=== PATIENT | female | born 1990 | race Caucasian/White ===

== ENCOUNTER 2024-10-04 05:40 | Emergency (ER) | payer MEDICAID ==
[~2024-10-04] VITALS: Ht 172.7 cm; Wt 90.7 kg
[~2024-10-04 05:40] MED LIST: ABILIFY MYCITE20 M2 PO; ALBU90OI INH; ATOR10 PO; BENZ1 PO; Buspirone HCl15 MG PO; CLOZAPINE200 M1 PO; Depakote125 MG PO; EUTHYROX125 MCG PO; FLUTICASONE P15.8 M1; METFORMIN HCL500 MG PO; MIRALAX17 GM PO; PANT20 PO; Tenex1 MG PO; [UNRECOGNIZED DRUG - CODE] PO
[2024-10-04] MEDS ORDERED: OLANZapine ODT 5 MG Tab MM ONE (08:10)
[2024-10-04] MEDS ORDERED: LORazepam 1 MG Tab PO ONE (08:10)
[2024-10-04 09:40] LABS: BASOPHILS ABSOLUTE AUTO 0.07 K/mm3 (0.00-0.23); BASOPHILS PERCENT AUTO 1 % (0-2); EOSINOPHILS ABSOLUTE AUTO 0.04 K/mm3 (0.00-0.68); EOSINOPHILS PERCENT AUTO 1 % (0-6); Hematocrit 42.4 % (33.0-51.0); Hemoglobin 14.1 g/dL (11.5-16.0); IMMATURE GRAN ABSOLUTE AUTO 0.01 K/mm3 (0.00-0.10); IMMATURE GRAN PERCENT AUTO 0 % (0-1); LYMPHOCYTES ABSOLUTE AUTO 1.63 K/mm3 (0.84-5.20); LYMPHOCYTES PERCENT AUTO 30 % (21-46); MONOCYTES ABSOLUTE AUTO 0.33 K/mm3 (0.16-1.47); MONOCYTES PERCENT AUTO 6 % (4-13); Mean Corpuscular HGB 31.1 pg (26.0-34.0); Mean Corpuscular HGB Conc 33.3 g/dL (31.5-36.5); Mean Corpuscular Volume 94 fL (80-100); Mean Platelet Volume 9.6 fL (9.1-12.4); NEUTROPHILS ABSOLUTE AUTO 3.35 K/mm3 (1.96-9.15); NEUTROPHILS PERCENT AUTO 62 % (41-73); Platelet Count 475 K/mm3 (150-400); RDW Coefficient Variation 13.9 % (11.7-14.2); RDW Standard Deviation 48.4 fL (35.1-46.3); Red Blood Cell Count 4.53 M/mm3 (3.80-5.20); White Blood Cell Count 5.43 K/mm3 (4.00-11.30)
[2024-10-04 10:03] LABS: Ethanol (Alcohol), Blood, Med <3 mg/dL; Salicylate <1.7 mg/dL (2.8-20.0)
[2024-10-04] MEDS ORDERED: CLOZAPINE200 MG PO (10:06)
[2024-10-04 10:07] LABS: Alanine Aminotransfer (ALT/SGP 51 U/L (12-78); Albumin, Blood 3.8 g/dL (3.4-5.0); Albumin/Globulin Ratio 1.1 (0.8-1.8); Alk Phos 112 U/L (50-136); Anion Gap 11 mmol/L (3-11); Aspartate Aminotrans (AST/SGOT 25 U/L (12-37); Bilirubin, Total 0.9 mg/dL (0.1-1.0); Blood Urea Nitrogen 11 mg/dL (8-24); Bun/Creatinine Ratio 16.7 (12.0-20.0); CO2, Blood 22 mmol/L (21-32); Calcium, Blood 9.7 mg/dL (8.5-10.1); Chloride, Blood 112 mmol/L (98-108); Creatinine, Blood 0.66 mg/dL (0.40-1.00); Globulin, Blood 3.5 g/dL (2.2-4.0); Glomerular Filtration Rate 118 (60-); Glucose, Blood 102 mg/dL (70-99); Sodium, Blood 141 mmol/L (136-145); Total Protein, Blood 7.3 g/dL (6.4-8.2)
[2024-10-04 10:08] LABS: Acetaminophen, Random < 10.0 ug/mL (10.0-30.0)
== END 2024-10-04 10:19 | disposition home or self-care (01) ==
LOC: ER 05:40
PROVIDERS: Student in an Organized Health Care Education/Training Program
DX: F25.0 Schizoaffective disorder, bipolar type (principal); E03.9 Hypothyroidism, unspecified; K21.9 Gastro-esophageal reflux disease without esophagitis; E11.9 Type 2 diabetes mellitus without complications; E78.5 Hyperlipidemia, unspecified; F17.210 Nicotine dependence, cigarettes, uncomplicated; Z76.0 Encounter for issue of repeat prescription; Z79.84 Long term (current) use of oral hypoglycemic drugs; Z79.51 Long term (current) use of inhaled steroids; Z79.899 Other long term (current) drug therapy; Z88.8 Allergy status to other drugs, medicaments and biological substances
CPT/HCPCS: 80053; 80320; 85025; 93005; 93010; 99284-25; A9270; G0480

== ENCOUNTER 2024-10-06 05:51 | Emergency (ER) | payer MEDICAID ==
[~2024-10-06] VITALS: Ht 175.3 cm; Wt 90.7 kg
[~2024-10-06 05:51] MED LIST changes: +CLOZAPINE200 MG PO
[2024-10-06] MEDS ORDERED: LORazepam 1 MG Tab PO ONE (08:40)
[2024-10-06] MEDS ORDERED: CLOZAPINE200 M1 PO (08:42)
== END 2024-10-06 09:17 | disposition home or self-care (01) ==
LOC: ER 05:51
DX: F41.9 Anxiety disorder, unspecified (principal); Z76.0 Encounter for issue of repeat prescription; E03.9 Hypothyroidism, unspecified; K21.9 Gastro-esophageal reflux disease without esophagitis; E11.9 Type 2 diabetes mellitus without complications; F17.210 Nicotine dependence, cigarettes, uncomplicated; Z79.84 Long term (current) use of oral hypoglycemic drugs; Z79.899 Other long term (current) drug therapy; Z88.8 Allergy status to other drugs, medicaments and biological substances
CPT/HCPCS: 99282; A9270

== ENCOUNTER 2024-10-28 23:10 | Observation (INO) | payer OTHER ==
[~2024-10-28] VITALS: Ht 172.7 cm; Wt 90.7 kg
[2024-10-29 06:03] LABS: BASOPHILS ABSOLUTE AUTO 0.04 K/mm3 (0.00-0.23); BASOPHILS PERCENT AUTO 1 % (0-2); EOSINOPHILS ABSOLUTE AUTO 0.12 K/mm3 (0.00-0.68); EOSINOPHILS PERCENT AUTO 3 % (0-6); Hematocrit 39.7 % (33.0-51.0); Hemoglobin 13.3 g/dL (11.5-16.0); IMMATURE GRAN ABSOLUTE AUTO 0.01 K/mm3 (0.00-0.10); IMMATURE GRAN PERCENT AUTO 0 % (0-1); LYMPHOCYTES PERCENT AUTO 46 % (21-46); MONOCYTES ABSOLUTE AUTO 0.46 K/mm3 (0.16-1.47); MONOCYTES PERCENT AUTO 10 % (4-13); Mean Corpuscular HGB 32.4 pg (26.0-34.0); Mean Corpuscular HGB Conc 33.5 g/dL (31.5-36.5); Mean Corpuscular Volume 97 fL (80-100); Mean Platelet Volume 9.6 fL (9.1-12.4); NEUTROPHILS ABSOLUTE AUTO 1.82 K/mm3 (1.96-9.15); NEUTROPHILS PERCENT AUTO 40 % (41-73); Platelet Count 369 K/mm3 (150-400); RDW Coefficient Variation 13.9 % (11.7-14.2); RDW Standard Deviation 49.4 fL (35.1-46.3); White Blood Cell Count 4.55 K/mm3 (4.00-11.30)
[2024-10-29 06:30] LABS: Alanine Aminotransfer (ALT/SGP 120 U/L (12-78); Albumin, Blood 3.3 g/dL (3.4-5.0); Albumin/Globulin Ratio 1.2 (0.8-1.8); Alk Phos 65 U/L (50-136); Anion Gap 13 mmol/L (3-11); Aspartate Aminotrans (AST/SGOT 51 U/L (12-37); Bilirubin, Total 1.3 mg/dL (0.1-1.0); Blood Urea Nitrogen 13 mg/dL (8-24); Bun/Creatinine Ratio 21.2 (12.0-20.0); CO2, Blood 22 mmol/L (21-32); Calcium, Blood 9.1 mg/dL (8.5-10.1); Chloride, Blood 111 mmol/L (98-108); Creatinine, Blood 0.61 mg/dL (0.40-1.00); Ethanol (Alcohol), Blood, Med <3 mg/dL; Globulin, Blood 2.8 g/dL (2.2-4.0); Glomerular Filtration Rate 120 (60-); Glucose, Blood 91 mg/dL (70-99); Potassium, Blood 3.6 mmol/L (3.5-5.5); Sodium, Blood 142 mmol/L (136-145); Total Protein, Blood 6.1 g/dL (6.4-8.2)
[2024-10-29 07:34] LABS: Source, Urine Clean Catch
[2024-10-29 08:39] LABS: Appearance, Urine Hazy (Clear); Bilirubin, Urine Neg (Neg); Blood, Urine 4+ (Neg); Color, Urine Amber (P-Yellow); Glucose Qualitative, Urine Neg (Neg); Ketones, Urine 1+ (Neg); Leukocyte Esterase, Urine Neg (Neg); Nitrite, Urine Neg (Neg); Protein, Urine 2+ (Neg); Urobilinogen, Urine 1+ (Normal)
[2024-10-29 09:07] LABS: Calcium Oxalate Crystals Few /hpf; Mucus Heavy (0-Heavy); Red Blood Cells, Urine 50-100 /hpf (0-2); Squamous Epithelial Cells Many /hpf (Few)
[2024-10-29 09:08] LABS: Bacteria Many /hpf; White Blood Cells, Urine 0-2 /hpf (0-5)
[2024-10-29 13:38] LABS: U Amphetamine Screen Not Detected; U Barbituate Screen Not Detected; U Benzodiazapine Screen Not Detected
[2024-10-29 13:39] LABS: U Buprenorphine Screen Not Detected; U Cannabinoids Screen Not Detected; U Cocaine Screen Not Detected; U Methadone Screen Not Detected; U Methamphetamine Screen Not Detected; U Opiates Screen Not Detected; U Oxycodone Screen Not Detected; U Phencyclidine Screen Not Detected
== END 2024-10-29 13:55 | disposition other institution (70) ==
LOC: ER 23:10 → EOR 23:11
PROVIDERS: ADMIT Emergency Medicine
DX: F25.0 Schizoaffective disorder, bipolar type (principal); R45.851 Suicidal ideations; E03.9 Hypothyroidism, unspecified; K21.9 Gastro-esophageal reflux disease without esophagitis; E11.9 Type 2 diabetes mellitus without complications; E78.5 Hyperlipidemia, unspecified; F17.210 Nicotine dependence, cigarettes, uncomplicated; Z79.84 Long term (current) use of oral hypoglycemic drugs; Z79.899 Other long term (current) drug therapy; Z88.8 Allergy status to other drugs, medicaments and biological substances
CPT/HCPCS: 80053; 80320; 81001; 84443; 84703; 85025; 93005; 93010; 99285; G0378

== ENCOUNTER 2024-10-29 13:18 | Inpatient (IN) | payer MEDICARE, OTHER ==
[2024-10-29] MEDS ORDERED: FLU VACC TS2024-25(6MOS UP)/PF 45 MCG/0.5 ML SYRINGE IM SCH (13:50)
[2024-10-29] MEDS ORDERED: HydrOXYzine Pamoate 50 MG Cap PO PRN (13:50)
[2024-10-29] MEDS ORDERED: OLANZapine ODT 10 MG Tab MM PRN (13:55)
[2024-10-29] MEDS ORDERED: Ibuprofen 600 MG Tab PO PRN (13:55)
[2024-10-29] MEDS ORDERED: Aluminum Hydroxide 320MG/5ML 473 ML PO PRN (13:55)
[2024-10-29] MEDS ORDERED: Melatonin 3 MG Tab PO PRN (13:55)
[2024-10-29] MEDS ORDERED: Calcium Carbonate 500 MG Tab Chew PO PRN (13:55)
[2024-10-29] MEDS ORDERED: Polyethylene Glycol 3350 17 gm PO PRN (13:55)
[2024-10-29] MEDS ORDERED: Ondansetron 4 MG SoluTab MM PRN (13:55)
[2024-10-29] MEDS ORDERED: Acetaminophen 325 MG TABLET PO PRN (14:00)
[2024-10-29] MEDS ORDERED: TraZODone HCl 50 MG Tab PO PRN (14:00)
[2024-10-29 14:07] VITALS: BP 123/82
--- NOTE | 2024-10-29 16:20 | NUR ---
ADMISSION NOTE PT ARRIVED FROM [facility] ED, A&O X3, MALODOROUS OF YEAST AND UNKEMPT HAIR. BELONGINGS WERE GATHERED, LOGGED, AND SECURED BY MHA. PT VERY ITCHY IN GROIN FOLDS ON ARRIVAL AND ALLOWED TO SHOWER PRIOR TO INTAKE QUESTIONS AND ORIENTATION TO UNIT. AFTER SHOWER PT WAS GIVEN HER NEW PATIENT PACKET AND CONSENT FORMS SIGNED. PT STATES UNDERSTANDING OF EXPECTATIONS WHILE IN U. PT ORIENTED TO UNIT AND ROOM, INTRODUCED TO HER ROOMMATE. SHE IMMEDIATELY LAY DOWN IN HER BED AND COVERED UP WITH BLANKETS. PT WAS COOPERATIVE WITH INTAKE PROCESS AND QUESTIONS. NOTIFIED OF YEAST LIKE RASH TO GROIN.
[2024-10-29] MEDS ORDERED: CLOZAPINE 25 MG PO SCH ×2 (21:00)
[2024-10-29] MEDS ORDERED: Miconazole Nitrate 2% 85 GM PWD TOP SCH (21:00)
[2024-10-29 22:43] VITALS: BP 99/59
--- NOTE | 2024-10-30 04:21 | NUR ---
PATIENT WAS IN BED RESTING BUT AWAKE AT THE BEGINNING OF THE SHIFT. SHE WAS ABLE TO ANSWER QUESTIONS APPROPRIATELY. SHE WAS PLEASANT AND COOPERATIVE WITH CARES, INCLUDING EVENING MEDICATIONS. SHE JOINED THE UNIT IN THE DINING AREA FOR SNACK AND FOLLOW UP AT 1999. SHE WENT TO BED SHORTLY AFTER AND WAS NOTED TO BE RESTING QUIETLY WITH EYES CLOSED AND RESPIRATIONS CONFIRMED FOR THE REMAINDER OF THE SHIFT. SHE HAD NO S/SX SUICIDAL IDEATION OR SELF HARM THIS SHIFT. CONTINUING TO MONITOR FOR SAFETY WITH Q15 MINUTE CHECKS.
[2024-10-30] MEDS ORDERED: Multivitamins 1 Tab PO SCH (09:00)
[2024-10-30] MEDS ORDERED: CLOZAPINE 25 MG PO SCH ×2 (09:00→21:00)
[2024-10-30 11:18] VITALS: BP 118/82
[2024-10-30] MEDS ORDERED: Nicotine Polacrilex 2 MG Gum PO PRN (12:10)
[2024-10-30 13:34] LABS: Chlamydia Trachomatis Urine NOT DETECTED (NOT DETECT); Neisseria Gonorrhoea Urine NOT DETECTED (NOT DETECT)
--- NOTE | 2024-10-30 17:23 | NUR ---
SHIFT SUMMARY PT A/O X3; DENIES SI, HI, OR ANY HALLUCINATIONS. PT SAYS THAT SHE FEELS VERY TIRED AND DID NOT SLEEP WELL LAST NIGHT. PT HAS BEEN IN BED FOR THE MAJORITY OF THE SHIFT BUT HAS PARTICIPATED IN MEALS AND GROUPS. PT RASH DUE TO YEAST VISUALIZED BETWEEN AND UNDER PATIENT'S BREAST. AREA CLEANED AND ANTI FUNGAL POWDER APPLIED. PT MET WITH FARMER AND GRAZIER TODAY AND BANK CARD OBTAINED. BANK CARD PLACED IN SIGNED ENVELOPE AND PUT IN SAFE. SHE HAS DENIED ANY NEEDS THIS SHIFT AND IS MONITORED VIA Q15 ROUNDING FOR SAFETY.
[2024-10-30 23:39] VITALS: BP 116/89
--- NOTE | 2024-10-31 05:37 | NUR ---
SHIFT SUMMARY Pt is A&O, calm, cooperative, eye contact is appropriate. Pt stated her mood is "sad, depressed." Affect is congruent with reported mood. Pt denies SI, HI, and hallucinations. She rated her depression as 7/10w and anxiety as 8/10w. Pt endorsed bilateral foot pain 7/10w and received PRN APAP; pt was asleep at reassessment. Pt remained in her room throughout the evening, but she did come out at snack time. Pt asked charge nurseif she could have a room to herself, but it was explained that there was no appropriate reason to change. Staff continues to monitor q15m for safety and wellness.
[2024-10-31] MEDS ORDERED: BusPIRone HCl 5 MG Tab PO SCH (14:00)
--- NOTE | 2024-10-31 16:34 | NUR ---
SHIFT SUMMARY PT A/O X4 AND DENIES SI, HI, OR ANY HALLUCINATIONS. SHE HAS ATTENDED ALL MEALS AND MOST GROUPS THIS SHIFT. SHE HAS BEEN IN BED FOR THE MAJORITY OF THE SHIFT AND SAID THAT SHE HAS NOT BEEN FEELING WELL. PT C/O THICK, WHITE, VAGINAL DISCHARGE AND ITCHING. PT HAS YEAST RASH TO GROIN AND UNDER BREASTS AND FUNGAL POWDER APPLIED PER EMR. PHYSICIAN NOTIFIED OF DISCHARGE AND ORDERS OBTAINED. PT SHOWERED THIS SHIFT AND CONTINUES TO SLEEP. SHE IS MONITORED PER Q15 ROUNDING FOR SAFETY.
[2024-10-31 23:05] VITALS: BP 109/80
--- NOTE | 2024-11-01 05:43 | NUR ---
SHIFT SUMMARY Pt is A&O, calm, cooperative, eye contact is appropriate. Pt stated that her mood is "sad," affect is depressed and congruent to stated mood. Pt denies SI, HI, and hallucinations. She rated her anxiety and depression both as 8/10w. She c/o body aches 7/10w and received PRN APAP and ibuprofen; she was asleep at reassessment. Pt showered today and used the antifungal powder on the affected areas. She received PRN trazodone during HS med pass. Staff continues to monitor q15m for safety and wellness.
[2024-11-01] MEDS ORDERED: Fluconazole 100 MG Tab PO SCH (09:00)
[2024-11-01] MEDS ORDERED: CLOZAPINE 25 MG PO SCH ×2 (09:00→21:00)
--- NOTE | 2024-11-01 17:38 | NUR ---
PT DENIES TO BE SI,HI AND AVH. HAS BEEN COOPERATIVE AND COMPLIANT WITH MEDS. WENT TO GROUP FOR MINIMAL TIMES. HAS BEEN IN BED TODAY WITH COMPLANT OF ACHY FEELING ALL OVER. HAS EATEN MEALS AND SNACKS TODAY. SHOWERED. DRY SKIN AREA GETTING BETTER. STILL STATES SHE IS ANXIOUS ABOUT NOT KNOWING ABOUT WHAT IS HAPPENING WITH HER DISCHARGE. SPOKE WITH CARMEN HER ATTORNY ON THE PHONE. WILL CONTINUE TO MONITOR.
[2024-11-02 00:19] VITALS: BP 111/78
--- NOTE | 2024-11-02 05:31 | NUR ---
SHIFT SUMMARY Pt is A&O, calm, cooperative, eye contact is appropriate. Pt describes her mood as "depressed," affect is congruent with reported mood. Pt denies SI, HI, hallucinations, and pain. She rates her depression and anxiety both as 7/10w. Pt did shower today. She spent the evening in her room, but did come out for her evening snack. Pt received PRN trazodone and melatonin during this shift. Staff continues to monitor q15m for safety and wellness.
[2024-11-02 07:49] VITALS: BP 113/80
[2024-11-02 11:08] LABS: Free Thyroxine 0.7 ng/dL (0.70-1.60); Triiodothyronine, Free 2.38 pg/mL (2.18-3.98)
--- NOTE | 2024-11-02 15:21 | NUR ---
PATIENT UP FOR SNACK, THEN BACK TO BED. VERBALIZED FEELING ANXIOUS AND ASKING FOR ZYPREXIA. SPEECH QUICK WITH SHORT ANSWERS. DENIES SI, HI, AVH. PATIENT APPEARS FEARFUL, WHEN ASKED DENIES BEING AFRAID. PATIENT AGREEING TO WAIT FOR APROX AN HOUR TO SEE HOW THE BUSPAR WORKS, BEFORE TAKING ZYPREXIA.
--- NOTE | 2024-11-02 17:43 | NUR ---
SHIFT SUMMARY PATIENT ATTENDING GROUP AND MEALS, BUT BACK IN ROOM DURING DOWN TIME. DESPITE BEING TIRED AND APPEARING RELAXED PATIENT VERBALIZED FEELING ANXIOUS, SCHEDULED BUSPAR GIVEN. NO SI, HI, OR AVH. PATIENT ABLE TO SHOWER TODAY WITH ENCOURAGEMENT
[2024-11-02 22:16] VITALS: BP 119/81
--- NOTE | 2024-11-03 04:21 | NUR ---
SHIFT SUMMARY: PATIENT WAS IN BED AT THE BEGINNING OF THE SHIFT. SHE CAME OUT TO STATE THAT SHE WAS HAVING PAIN 7/10 "IN MY JOINTS". SHE WAS GIVEN APAP AT 193 WITH GOOD EFFECT. SHE DECLINED OFFER OF EVENING SNACK AT 1999. SHE WAS COOPERATIVE WITH CARES, INCLUDING VITALS AND EVENING MEDICATIONS. PATIENT WAS NOTED TO BE RESTING QUIETLY IN BED WITH EYES CLOSED AND RESPIRATIONS CONFIRMED FOR MOST OF THE SHIFT. SHE HAD NO S/SX SUICIDAL IDEATION OR SELF HARM. CONTINUING TO MONITOR FOR SAFETY WITH Q15 MINUTE CHECKS.
[2024-11-03 08:02] VITALS: BP 121/101
[2024-11-03] MEDS ORDERED: CLOZAPINE 25 MG PO SCH (09:00)
[2024-11-03] MEDS ORDERED: HydrOXYzine Pamoate 50 MG Cap PO PRN (17:00)
--- NOTE | 2024-11-03 17:19 | NUR ---
PATIENT UP TO NURSES DESK REQUESTING ZYPREXA FOR HER ANXIETY. WHEN ASKED ABOUT HER SLEEPING BETWEEN ACTIVITIES, PATIENT VERBALIZED THAT SHE WAS JUST "RESTING" PATIENT RECEIVED BUSPAR AT 1400, PATIENT CONTINUES TO EXPRESS FEELING ANXIOUS. DOCTOR YOSVANY NOTIFIED ORDER OBTAINED FOR HYDROXYZINE. PATIENT MEDICATED AND ENCOURAGED TO PARTICIPATE NOT ONLY IN GROUP BUT IN MILIEU.
--- NOTE | 2024-11-03 17:41 | NUR ---
SHIFT SUMMERY PATIENT ATTENDING GROUP AND MEALS NEEDING ENCOURAGEMENT FROM STAFF, RETURNING TO ROOM AND LAYING DOWN BETWEEN ACTIVITIES. TREMOR SEEN TO ARMS AND HANDS THAT DOES NOT INTERFERE WITH ADLS OR EATING. PATIENT VERBALIZED THAT SHE HAS OCCASIONAL SI THOUGHTS WITH NO PLAN. DENIES HI OR AVH. PATIENT CONTINUES TO REQUIRE ENCOURAGEMENT TO SHOWER AND OTHER ADL'S.
[2024-11-03] MEDS ORDERED: CloZAPine 100 MG Tab PO SCH (21:00)
[2024-11-03] MEDS ORDERED: Paliperidone 1.5 MG TAB.ER.24 PO SCH (21:00)
[2024-11-04 00:09] VITALS: BP 122/96
--- NOTE | 2024-11-04 05:08 | NUR ---
SHIFT SUMMARY PT IN BED AT START OF SHIFT, AWAKE. DENIES ANY SI, HI OR HALLUCIANTIONS. PT CALM, COOPERATIVE, GOT UP FOR EVENING SNACK. SHE WAS COMPLIANT WITH HER MEDICATIONS. SHE REQUESTED AND RECEIVED TRAZODONE AND MELATONIN. SHE REPORTED GENERALIZED ACHES AND RECEIVED PRN TYLENOL. PT WENT BACK TO BED AFTER EVENING SNACK AND HAS APPEARED TO SLEEP WELL. Q15 MINUTE CHECKS TO CONTINUE PER UNIT PROTOCOL.
[2024-11-04] MEDS ORDERED: Paliperidone Palmitate 234 MG/1.5 ML SYR IM ONE (09:40)
--- NOTE | 2024-11-04 17:01 | NUR ---
SHIFT SUMMARY: PT ALERT AND ORIENTED. DENIED SI, HI AND AVH. PT STATED THAT SHE IS FEELING "OK" TODAY. PT PRESENT FOR MEALS AND ATTENDED AFTERNOON GROUPS. DID NOT ENGAGE IN UNIT MILIEU, SPENT THE MAJORITY OF THE DAY IN HER ROOM, SLEEPING. C/O HEADACHE AND WAS MEDICATED WITH PRN PER ORDERS.
[2024-11-04 18:07] VITALS: BP 93/51
[2024-11-04 22:47] VITALS: BP 118/78
--- NOTE | 2024-11-05 03:41 | NUR ---
PATIENT SUMMARY: ASSUMED CARE FROM PRIOR SHIFT. PATIENT ALREADY IN BED AT BEGINNING OF SHIFT. SHE DID GET P FOR SNACK TIME HOWEVER, DIDN'T PARTICIPATE IN PM GROUP. SHE IS COMPLIANT WITH NIGHT TIME MEDS AND ASSESSMENT. ONLY MAKEING "YES" OR "NO" ANSWERS. SHE CURRENTLY DENIES SI, VH, AH OR TH. SHE SLEEPS THROUGH THE NIGHT. NO NOTED BEHAVIORS OR ISSUES.
--- NOTE | 2024-11-05 06:22 | NUR ---
PATIENT CURRENTLY SLEEPING. NO NOTED ISSUES OR BEHAVIORS.
[2024-11-05] MEDS ORDERED: CloZAPine 100 MG Tab PO SCH (09:00)
--- NOTE | 2024-11-05 09:02 | NUR ---
SHIFT NOTE: PT DENIED SI, HI AND AVH. SHE REPORTED ANXIETY OF 6/10w AND JOINT PAIN 5/10w. PT GOT UP FOR BREAKFAST AND WENT BACK TO BED. WHEN ASKED ABOUT HER FEELINGS/MOOD FOR THE DAY SHE REPLIED, "I DON'T KNOW." PT WAS ENCOURAGED TO ATTEND GROUPS TODAY.
[2024-11-05 14:46] LABS: BASOPHILS ABSOLUTE AUTO 0.04 K/mm3 (0.00-0.23); BASOPHILS PERCENT AUTO 1 % (0-2); EOSINOPHILS ABSOLUTE AUTO 0.13 K/mm3 (0.00-0.68); EOSINOPHILS PERCENT AUTO 2 % (0-6); Hematocrit 42.3 % (33.0-51.0); Hemoglobin 14.4 g/dL (11.5-16.0); IMMATURE GRAN ABSOLUTE AUTO 0.02 K/mm3 (0.00-0.10); IMMATURE GRAN PERCENT AUTO 0 % (0-1); LYMPHOCYTES ABSOLUTE AUTO 2.41 K/mm3 (0.84-5.20); LYMPHOCYTES PERCENT AUTO 43 % (21-46); MONOCYTES ABSOLUTE AUTO 0.46 K/mm3 (0.16-1.47); MONOCYTES PERCENT AUTO 8 % (4-13); Mean Corpuscular HGB 32.5 pg (26.0-34.0); Mean Corpuscular Volume 96 fL (80-100); Mean Platelet Volume 10.7 fL (9.1-12.4); NEUTROPHILS ABSOLUTE AUTO 2.61 K/mm3 (1.96-9.15); NEUTROPHILS PERCENT AUTO 46 % (41-73); Platelet Count 412 K/mm3 (150-400); RDW Standard Deviation 46.2 fL (35.1-46.3); Red Blood Cell Count 4.43 M/mm3 (3.80-5.20); White Blood Cell Count 5.67 K/mm3 (4.00-11.30)
--- NOTE | 2024-11-05 15:21 | NUR ---
PT IS PRESENTLY IN THE GROUP ROOM WATCHING A MOVIE WITH PEERS. A MHA REMOVED THE MATTED HAIR FROM THE BACK OF JERSON'S HEAD, SHE THEN TOOK A SHOWER AND WASHED HER HAIR.
[2024-11-05 20:10] VITALS: BP 135/86
--- NOTE | 2024-11-06 05:03 | NUR ---
SHIFT NOTE: PT OOB FOR FIRST PART OF SHIFT, NOT WANTING TO PARTICIPATE IN GROUPS OR ACTIVITIES BUT PARTICIPATED IN SNACK. PT PLEASANT THIS SHIFT AND INTERACTING WITH STAFF AND OTHER PEERS. DENIES SI/HI/AVH. PRN TRAZADONE GIVEN AFTER DINNER PER PT REQUEST. SHE SLEPT THROUGH THE NIGHT WITH NAD OR DISTURBANCES. SHE WAS COMPLIANT WITH ALL MEDICATIONS.
[2024-11-06 07:51] VITALS: BP 122/67
[2024-11-06] MEDS ORDERED: BusPIRone HCl 10 MG Tab PO SCH (14:00)
--- NOTE | 2024-11-06 17:03 | NUR ---
SHIFT ASSESSMENT PT AA&O TO PERSON, PLACE, AND SITUATION. PT HAS BEEN NAPPING ON AND OFF TODAY. SHE HAS BEEN UP MORE THAN USUAL WITHOUT CUING. PT HAS BEEN ASWERING QUESTIONS WITH FULL SENTENCES. SHE DENIES SI, AVH. SHE DOES REPORT THAT SHE HAS A "LOT TO DEAL WITH" AND IS NOT SURE "WHAT I AM GOING TO DO" SHE REPORTS THAT SHE WOULD LIKE TO GET BACK TO [place] TO BE WITH HER MOTHER AND GRANDMOTHER. PT HAS BEEN COMPLIANT WITH MEDICATIONS. SHE DENIES ANY ADVERSE SIDE EFFECTS. PT MEDICATED X1 WITH HYDROXIZINE WITH GOOD EFFECTS. SHE DENIES ANY CURRENT NEEDS. WILL CONTINUE POC
[2024-11-06 21:03] VITALS: BP 111/74
--- NOTE | 2024-11-07 04:08 | NUR ---
Patient is alert and oriented times four. Flat affect and very minimally conversant. She denies SI,HI or AVH during evening assessment. Bed most of the evening except during snack time which she did eat 100%. Will continue close monitoring every 15 minutes for comfort and safety
[2024-11-07 08:32] VITALS: BP 133/80
--- NOTE | 2024-11-07 17:20 | NUR ---
SHIFT NOTE: PT UP FOR MEALS AND SNACKS. STAYED IN BED MOST OF THE DAY UNTIL THE EVENING TIME WHEN SHE GOT OUT OF BED TO WATCH TV WITH PEERS IN GROUP ROOM. PT RECIEVED ONE PRN DOSE OF VISTARIL FOR C/O ANXIETY THIS AFTERNOON. PT DENIES ANY SI/HI/AVH. SHE WAS COMPLIANT WITH ALL MEDICATIONS.
[2024-11-07 20:53] VITALS: BP 106/79
--- NOTE | 2024-11-08 04:18 | NUR ---
SHIFT SUMMARY: PATIENT WAS IN BED AT THE BEGINNING OF THE SHIFT. SHE WAS AWAKENED TO ASK IF SHE WOULD LIKE TO PARTICIPATE IN SNACK AND FOLLOW UP, WHICH SHE DID. SHE THEN WENT RIGHT BACK TO BED. SHE WAS AWAKENED AGAIN FOR MEDICATION ADMINISTRATION. SHE WAS COMPLIANT, BUT WENT RIGHT BACK TO BED WHERE SHE WAS NOTED TO BE RESTING QUIETLY WITH EYES CLOSED AND RESPIRATIONS CONFIRMED FOR THE REMAINDER OF THE SHIFT. SHE IS NOTED TO HAVE A SLIGHT COUGH. SHE DENIED THOUGHTS OF SUICIDAL IDEATION OR SELF-HARMING. CONTINUING TO MONITOR FOR SAFETY WITH Q15 MINUTE CHECKS.
[2024-11-08 08:10] VITALS: BP 107/73
--- NOTE | 2024-11-08 15:31 | NUR ---
IMPORTANT HOSPITAL DISCHARGE PLAN INFORMATION Katherine Heredia from [facility] forensic team to sheepskin pickler patient at discharge on 11/10/24 to transport patient to [facility] to continue setting up primary care, mental health treatment, appointments for SSDI and insurance completion, and finally to [facility], where the patient's divorce attorney and family have secured for her to stay while in [place]. Katherine to contact on 11/09/24 with dishcarge sheepskin pickler time
--- NOTE | 2024-11-08 18:13 | NUR ---
SHIFT SUMMARY PT AxOx4. PT IS PLEASANT AND COOPERATIVE WITH CARE. PT DENIED SI/HI AND AVTH THIS SHIFT. SHE HAS BEEN FOLLOWING HER TREATMENT PLAN INCLUDING TAKING MEDS PRESCRIBED, ATTENDING ALL MILIEU GROUPS AND MINGLING APPROPRIATELY WITH STAFF AND PEERS ON THE UNIT. PROVIDER CHANGED MEDICATIONS TO BEGIN WEANING OFF CLOZARIL. PT'S SECOND INVEGA INJECTION ORDERED TO BE GIVEN TOMORROW. PT EXPRESSED CONCERN ABOUT THE MEDICATION CHANGES NOT HELPING HER STABILIZE. PT WAS PROVIDED MEDICATION EDUCATION AND ENCOURAGED TO ADVOCATE FOR HERSELF WHEN SHE SEES THE DOCTOR AGAIN. PT VERBALIZES UNDERSTANDING. HER CURRENT DISCHARGE PLANS ARE TO DC IN 2 DAYS. PT IS CURRENTLY SITTING IN GROUP ROOM WATCHING TV. DENIES ANY NEEDS AT THIS TIME.
[2024-11-08] MEDS ORDERED: CLOZAPINE 25 MG PO SCH (21:00)
[2024-11-08 22:07] VITALS: BP 125/83
--- NOTE | 2024-11-09 04:29 | NUR ---
SHIFT SUMMARY PT IN GROUP ROOM AT START OF SHIFT. DENIES ANY SI, HI OR AVH. SHE REPORTED FEELING SAD AND DEPRESSED AND STATED THAT SHE FOUND OUT THAT SHE COULD HAVE AIDS AND IS TO BE TESTED WHEN SHE IS DISCHARGED. WHEN ASKED HOW SHE FOUND OUT THAT SHE COULD POSSIBLY HAVE AIDS, SHE STATED "DIFFERENT PEOPLE TOLD ME". PT ALSO REPORTED CONCERN THAT THIS COULD POSSIBLY CAUSE HER TO LOSE HER HOUSING THAT IS PLANNED AT DISCHARGE. PT WAS REASSURED THAT THIS WOULD NOT CAUSE HER TO LOSE HER HOUSING. PT HAD EVENING SNACK, SHE WAS COMPLIANT WITH MEDICATIONS. SHE REPORTED "BODY ACHES" RATED 5/10 AND RECEIVED TYLENOL. SHE ALSO REQUESTED AND RECEIVED PRN MELATONIN AND TRAZODONE. AFTER SNACK PT WENT TO BED. SHE HAS REMAINED IN HER ROOM THROUGHOUT THE NIGHT AND APPEARS TO HAVE SLEPT WELL, WITH RESPIRATIONS CONFIRMED. Q15 MINUTE CHECKS TO CONTINUE PER UNIT PROTOCOL.
[2024-11-09] MEDS ORDERED: Paliperidone Palmitate 156 MG/ML SYR IM ONE (09:00)
--- NOTE | 2024-11-09 15:46 | NUR ---
IMPORTANT HOSPITAL DISCHARGE INFORMATION Katherine from [facility] to fruit picker machine operator patient at 1300 for discharge. Patient requests [facility] at [facility] for medication. Katherine to reschedule patient's primary care appointment U electrical discharge machine operator notified and information entered into patient's discharge packet
--- NOTE | 2024-11-09 16:34 | NUR ---
PT C/O INCREASED ANXIETY AFTER USING THE PHONE, STATES SHE IS NOT SURE IF THERE WAS ANYTHING SPECIFIC THAT TRIGGERED THE ANXIETY. REQUESING MEDICATION, GAVE VISTARIL.
--- NOTE | 2024-11-09 16:55 | NUR ---
SHIFT SUMMARY PT A/O X4; PLEASANT AND COOPERATIVE WITH CARE. SHE DENIES SI, HI, AVH. PT'S AFFECT SEEMS TO BE LESS FLAT THIS SHIFT AND SHE'S MORE ENGAGED IN ACTIVITIES. HOWEVER, PT DOES SEEM ANXIOUS ABOUT DISCHARGE TOMORROW AND HAS USED THE PHONE OFTEN. SHE RECEIVED HER 2ND INVEGA INJECTION AND WILL BE DISCHARGING TOMORROW. NAINA FROM [facility] IS TO PICK THE PATIENT UP TOMORROW AT 1300 AND REQUESTS NEW MEDICATIONS TO BE SENT TO [facility]. PT CURRENTLY RESTING IN BED. ATTENDED MEALS AND GROUPS THIS SHIFT.
[2024-11-09 20:24] VITALS: BP 112/79; BP 132/96
--- NOTE | 2024-11-10 04:09 | NUR ---
SHIFT SUMMARY PATIENT BACK TO ROOM BETWEEN ACTIVITIES. VERBALIZED FEELING ANXIOUS AND WORRIED ABOUT LEAVING. PATIENT ENCOURAGED TO WRITE A LIST OF HER WORRIES REGARDING BEING DISCHARGED TO MAKE IT EASIER TO DISCUSS CONCERNS WITH DOCTOR AND STAFF. VERBALIZED THAT SHE CONTINUES TO HAVE THOUGHTS OF NOT BEING ALIVE, DENIES HAVING PLAN AND AGREES TO NOT HARM SELF. DENIES HI OR AVH. PATIENT LAUGHING AT ODD TIMES, WHEN QUESTIONED WHAT IS MAKING HER LAUGH PATIENT VERBALIZED "JUST THINGS" DENIES HALLUCINATIONS. PATIENT C/O PAIN TO HER HIPS WITH GOOD PAIN CONTROL WITH TYLENOL. MELATONIN AND TRAZODONE GIVEN FOR SLEEP. PATIENT APPEARS TO BE SLEEPING T/O THE REST OF THE NIGHT AND CURRENTLY REMAINS IN BED
[2024-11-10 08:17] VITALS: BP 102/70
[2024-11-10] MEDS ORDERED: Paliperidone Palmitate 156 MG/ML SYR IM SCH (09:00)
--- NOTE | 2024-11-10 13:00 | NUR ---
DISCHARGE: PT DISCHARGED HOME. [facility] STAFF ARRVIED FOR TRANSPORT. PT PROVIDED WITH DISCHARGE INSTRUCITONS, DENIED QUESTIONS. BELONGINGS RETURNED TO PT BY LUZ WHITNEY. AMBULATED OUT OF DEPT WITH DISCHARGE INSTRUCTIONS AND BELONGINGS IN HAND.
[2024-11-11] MEDS ORDERED: BUSP10 PO (08:33)
[2024-11-11] MEDS ORDERED: TRAZ50 PO (08:34)
== END 2024-11-10 13:00 | disposition home or self-care (01) | DRG 885 ==
LOC: BHU 13:18
PROVIDERS: ADMIT Psychiatry & Neurology Psychiatry
DX: F20.9 Schizophrenia, unspecified (principal); Z59.00 Homelessness unspecified; E03.9 Hypothyroidism, unspecified; Z79.890 Hormone replacement therapy; E78.00 Pure hypercholesterolemia, unspecified; K21.9 Gastro-esophageal reflux disease without esophagitis; K76.0 Fatty (change of) liver, not elsewhere classified; Z96.642 Presence of left artificial hip joint; Z90.49 Acquired absence of other specified parts of digestive tract; Z79.84 Long term (current) use of oral hypoglycemic drugs; F17.210 Nicotine dependence, cigarettes, uncomplicated; Z88.8 Allergy status to other drugs, medicaments and biological substances; Z79.899 Other long term (current) drug therapy
CPT/HCPCS: 36415; 84439; 84481; 85025; 87491; 87591; A9270

== ENCOUNTER 2024-11-11 08:23 | Emergency (ER) | payer OTHER ==
[~2024-11-11] VITALS: Ht 175.3 cm; Wt 90.7 kg
[2024-11-11] MEDS ORDERED: BUSP10 PO (08:33)
[2024-11-11] MEDS ORDERED: TRAZ50 PO (08:34)
[2024-11-11] MEDS ORDERED: BusPIRone HCl 5 MG Tab PO ONE (09:20)
== END 2024-11-11 09:31 | disposition home or self-care (01) ==
LOC: ER 08:23
DX: F41.9 Anxiety disorder, unspecified (principal); R45.851 Suicidal ideations; R44.0 Auditory hallucinations; Z59.89 Other problems related to housing and economic circumstances
CPT/HCPCS: 99283; A9270

== ENCOUNTER 2024-11-11 21:20 | Observation (INO) | payer OTHER ==
[~2024-11-11] VITALS: Ht 172.7 cm; Wt 90.7 kg
[~2024-11-11 21:20] MED LIST changes: +BUSP10 PO; +TRAZ50 PO
[2024-11-11 22:12] LABS: BASOPHILS ABSOLUTE AUTO 0.04 K/mm3 (0.00-0.23); BASOPHILS PERCENT AUTO 1 % (0-2); EOSINOPHILS ABSOLUTE AUTO 0.09 K/mm3 (0.00-0.68); EOSINOPHILS PERCENT AUTO 1 % (0-6); Hematocrit 41.3 % (33.0-51.0); Hemoglobin 14.3 g/dL (11.5-16.0); IMMATURE GRAN ABSOLUTE AUTO 0.01 K/mm3 (0.00-0.10); IMMATURE GRAN PERCENT AUTO 0 % (0-1); LYMPHOCYTES ABSOLUTE AUTO 2.45 K/mm3 (0.84-5.20); LYMPHOCYTES PERCENT AUTO 29 % (21-46); MONOCYTES ABSOLUTE AUTO 0.74 K/mm3 (0.16-1.47); MONOCYTES PERCENT AUTO 9 % (4-13); Mean Corpuscular HGB Conc 34.6 g/dL (31.5-36.5); Mean Corpuscular Volume 92 fL (80-100); Mean Platelet Volume 10.2 fL (9.1-12.4); NEUTROPHILS ABSOLUTE AUTO 5.06 K/mm3 (1.96-9.15); NEUTROPHILS PERCENT AUTO 60 % (41-73); Platelet Count 387 K/mm3 (150-400); RDW Coefficient Variation 12.5 % (11.7-14.2); RDW Standard Deviation 42.8 fL (35.1-46.3); Red Blood Cell Count 4.47 M/mm3 (3.80-5.20); White Blood Cell Count 8.39 K/mm3 (4.00-11.30)
[2024-11-11] MEDS ORDERED: NS 1,000 ML IV SCH (22:25)
[2024-11-11] MEDS ORDERED: OLANZapine 10 MG Tab PO ONE (22:25)
[2024-11-11 22:39] LABS: Acetaminophen, Random <2.0 ug/mL (10.0-30.0); Alanine Aminotransfer (ALT/SGP 59 U/L (12-78); Albumin, Blood 3.8 g/dL (3.4-5.0); Albumin/Globulin Ratio 1.2 (0.8-1.8); Alk Phos 89 U/L (50-136); Anion Gap 11 mmol/L (3-11); Aspartate Aminotrans (AST/SGOT 19 U/L (12-37); Bilirubin, Total 1.3 mg/dL (0.1-1.0); Blood Urea Nitrogen 14 mg/dL (8-24); Bun/Creatinine Ratio 20.8 (12.0-20.0); CO2, Blood 19 mmol/L (21-32); Calcium, Blood 9.2 mg/dL (8.5-10.1); Chloride, Blood 113 mmol/L (98-108); Creatinine, Blood 0.67 mg/dL (0.40-1.00); Ethanol (Alcohol), Blood, Med <3 mg/dL; Globulin, Blood 3.1 g/dL (2.2-4.0); Glomerular Filtration Rate 118 (60-); Glucose, Blood 120 mg/dL (70-99); Potassium, Blood 3.4 mmol/L (3.5-5.5); Salicylate <1.7 mg/dL (2.8-20.0); Sodium, Blood 140 mmol/L (136-145); Total Protein, Blood 6.9 g/dL (6.4-8.2)
[2024-11-11 23:41] LABS: Source, Urine Clean Catch
[2024-11-11 23:45] LABS: Bilirubin, Urine Neg (Neg); Blood, Urine Neg (Neg); Glucose Qualitative, Urine Neg (Neg); Ketones, Urine 3+ (Neg); Leukocyte Esterase, Urine 1+ (Neg); Nitrite, Urine Neg (Neg); Protein, Urine 2+ (Neg); Specific Gravity, Urine 1.025 (1.003-1.022); Urobilinogen, Urine NORM (Normal)
[2024-11-11 23:51] LABS: Appearance, Urine Hazy (Clear); Color, Urine Yellow (P-Yellow)
[2024-11-11 23:52] LABS: Bacteria Many /hpf; Red Blood Cells, Urine 0-2 /hpf (0-2); Squamous Epithelial Cells Many /hpf (Few); White Blood Cells, Urine 0-2 /hpf (0-5)
[2024-11-12 00:05] LABS: U Amphetamine Screen Not Detected; U Barbituate Screen Not Detected; U Benzodiazapine Screen Not Detected; U Buprenorphine Screen Not Detected; U Cannabinoids Screen Not Detected; U Cocaine Screen Not Detected; U Methadone Screen Not Detected; U Methamphetamine Screen Not Detected; U Opiates Screen Not Detected; U Oxycodone Screen Not Detected; U Phencyclidine Screen Not Detected
== END 2024-11-12 11:48 | disposition home or self-care (01) ==
LOC: ER 21:20 → EOR 21:21
PROVIDERS: Student in an Organized Health Care Education/Training Program; ADMIT Emergency Medicine
DX: F20.9 Schizophrenia, unspecified (principal); R45.851 Suicidal ideations; F41.9 Anxiety disorder, unspecified; F31.9 Bipolar disorder, unspecified; E03.9 Hypothyroidism, unspecified; K21.9 Gastro-esophageal reflux disease without esophagitis; E11.9 Type 2 diabetes mellitus without complications; E78.5 Hyperlipidemia, unspecified; F17.210 Nicotine dependence, cigarettes, uncomplicated; Z88.8 Allergy status to other drugs, medicaments and biological substances; Z79.899 Other long term (current) drug therapy; Z90.49 Acquired absence of other specified parts of digestive tract; Z59.89 Other problems related to housing and economic circumstances
CPT/HCPCS: 80053; 80320; 81001; 81025; 85025; 87086; 93005; 93010; 99283; 99285-25; A9270; G0378; G0480

== ENCOUNTER 2024-11-28 20:06 | Observation (INO) | payer OTHER ==
[~2024-11-28] VITALS: Ht 175.3 cm; Wt 90.7 kg
[2024-11-28] MEDS ORDERED: Ondansetron HCl 2 MG / ML 2ML Vial IV ONE (20:30)
[2024-11-28 20:45] LABS: BASOPHILS ABSOLUTE AUTO 0.03 K/mm3 (0.00-0.23); BASOPHILS PERCENT AUTO 1 % (0-2); EOSINOPHILS ABSOLUTE AUTO 0.12 K/mm3 (0.00-0.68); EOSINOPHILS PERCENT AUTO 2 % (0-6); Hematocrit 41.7 % (33.0-51.0); Hemoglobin 14.5 g/dL (11.5-16.0); IMMATURE GRAN ABSOLUTE AUTO 0.01 K/mm3 (0.00-0.10); IMMATURE GRAN PERCENT AUTO 0 % (0-1); LYMPHOCYTES ABSOLUTE AUTO 1.99 K/mm3 (0.84-5.20); LYMPHOCYTES PERCENT AUTO 33 % (21-46); MONOCYTES ABSOLUTE AUTO 0.48 K/mm3 (0.16-1.47); MONOCYTES PERCENT AUTO 8 % (4-13); Mean Corpuscular HGB 32.4 pg (26.0-34.0); Mean Corpuscular HGB Conc 34.8 g/dL (31.5-36.5); Mean Corpuscular Volume 93 fL (80-100); Mean Platelet Volume 10.3 fL (9.1-12.4); NEUTROPHILS ABSOLUTE AUTO 3.47 K/mm3 (1.96-9.15); NEUTROPHILS PERCENT AUTO 57 % (41-73); Platelet Count 301 K/mm3 (150-400); RDW Coefficient Variation 12.1 % (11.7-14.2); RDW Standard Deviation 41.9 fL (35.1-46.3); Red Blood Cell Count 4.48 M/mm3 (3.80-5.20)
[2024-11-28] MEDS ORDERED: Ondansetron 4 MG SoluTab SL ONE (20:50)
[2024-11-28 21:18] LABS: Ethanol (Alcohol), Blood, Med <3 mg/dL; Salicylate 2.6 mg/dL (2.8-20.0)
[2024-11-28 21:33] LABS: Alanine Aminotransfer (ALT/SGP 27 U/L (12-78); Albumin, Blood 3.4 g/dL (3.4-5.0); Albumin/Globulin Ratio 1.2 (0.8-1.8); Alk Phos 74 U/L (50-136); Anion Gap 12 mmol/L (3-11); Aspartate Aminotrans (AST/SGOT 11 U/L (12-37); Bilirubin, Total 0.7 mg/dL (0.1-1.0); Blood Urea Nitrogen 6 mg/dL (8-24); Bun/Creatinine Ratio 9.1 (12.0-20.0); CO2, Blood 23 mmol/L (21-32); Calcium, Blood 8.9 mg/dL (8.5-10.1); Chloride, Blood 107 mmol/L (98-108); Creatinine, Blood 0.66 mg/dL (0.40-1.00); Globulin, Blood 2.8 g/dL (2.2-4.0); Glomerular Filtration Rate 118 (60-); Glucose, Blood 88 mg/dL (70-99); Potassium, Blood 3.6 mmol/L (3.5-5.5); Sodium, Blood 138 mmol/L (136-145); Total Protein, Blood 6.2 g/dL (6.4-8.2)
[2024-11-28 21:35] LABS: Acetaminophen, Random <2.0 ug/mL (10.0-30.0)
[2024-11-29 00:27] LABS: Source, Urine Clean Catch
[2024-11-29 00:33] LABS: Blood, Urine 5+ (Neg); Glucose Qualitative, Urine Neg (Neg); Ketones, Urine 4+ (Neg); Leukocyte Esterase, Urine 1+ (Neg); Nitrite, Urine Neg (Neg); Protein, Urine 2+ (Neg); Specific Gravity, Urine 1.025 (1.003-1.022); Urobilinogen, Urine 2+ (Normal)
[2024-11-29 00:42] LABS: Appearance, Urine Hazy (Clear); Bacteria Many /hpf; Bilirubin, Urine 1+ (Neg); Color, Urine Amber (P-Yellow); Granular Casts 0-2 /lpf (0); Mucus Light (0-Heavy); Red Blood Cells, Urine 50-100 /hpf (0-2); Squamous Epithelial Cells Many /hpf (Few); White Blood Cells, Urine 50-100 /hpf (0-5)
[2024-11-29 00:49] LABS: U Amphetamine Screen Not Detected; U Barbituate Screen Not Detected; U Benzodiazapine Screen Not Detected; U Buprenorphine Screen DETECTED; U Cannabinoids Screen Not Detected; U Cocaine Screen Not Detected; U Methadone Screen Not Detected; U Methamphetamine Screen Not Detected; U Opiates Screen Not Detected; U Oxycodone Screen Not Detected; U Phencyclidine Screen Not Detected
== END 2024-11-29 23:14 | disposition left against medical advice (07) ==
LOC: ER 20:06 → EOR 20:07
PROVIDERS: ADMIT Student in an Organized Health Care Education/Training Program
DX: F20.9 Schizophrenia, unspecified (principal); T50.7X2A Poisoning by analeptics and opioid receptor antagonists, intentional self-harm, initial encounter; F11.20 Opioid dependence, uncomplicated; E03.9 Hypothyroidism, unspecified; K21.9 Gastro-esophageal reflux disease without esophagitis; E11.9 Type 2 diabetes mellitus without complications; E78.5 Hyperlipidemia, unspecified; F31.9 Bipolar disorder, unspecified; F17.210 Nicotine dependence, cigarettes, uncomplicated; Z79.899 Other long term (current) drug therapy; Z88.8 Allergy status to other drugs, medicaments and biological substances; Z90.49 Acquired absence of other specified parts of digestive tract; Z59.00 Homelessness unspecified
CPT/HCPCS: 80053; 80320; 81001; 81025; 85025; 87086; 93005; 93010; 99285-25; G0378; G0480

== ENCOUNTER 2024-12-05 05:03 | Inpatient (IN) | payer MEDICARE, OTHER ==
[~2024-12-05] VITALS: Ht 175.3 cm; Wt 90.7 kg
[2024-12-05] MEDS ORDERED: HyDROXyzine HCl 25 MG Tab PO ONE (05:10)
[2024-12-05 05:38] LABS: BASOPHILS ABSOLUTE AUTO 0.04 K/mm3 (0.00-0.23); BASOPHILS PERCENT AUTO 1 % (0-2); EOSINOPHILS ABSOLUTE AUTO 0.04 K/mm3 (0.00-0.68); EOSINOPHILS PERCENT AUTO 1 % (0-6); Hematocrit 44.9 % (33.0-51.0); IMMATURE GRAN ABSOLUTE AUTO 0.01 K/mm3 (0.00-0.10); IMMATURE GRAN PERCENT AUTO 0 % (0-1); LYMPHOCYTES ABSOLUTE AUTO 0.97 K/mm3 (0.84-5.20); LYMPHOCYTES PERCENT AUTO 24 % (21-46); MONOCYTES ABSOLUTE AUTO 0.59 K/mm3 (0.16-1.47); MONOCYTES PERCENT AUTO 15 % (4-13); Mean Corpuscular HGB 31.4 pg (26.0-34.0); Mean Corpuscular HGB Conc 33.4 g/dL (31.5-36.5); Mean Corpuscular Volume 94 fL (80-100); Mean Platelet Volume 10.4 fL (9.1-12.4); NEUTROPHILS ABSOLUTE AUTO 2.32 K/mm3 (1.96-9.15); NEUTROPHILS PERCENT AUTO 58 % (41-73); Platelet Count 275 K/mm3 (150-400); RDW Coefficient Variation 12.8 % (11.7-14.2); RDW Standard Deviation 44.5 fL (35.1-46.3); Red Blood Cell Count 4.77 M/mm3 (3.80-5.20); White Blood Cell Count 3.97 K/mm3 (4.00-11.30)
[2024-12-05 06:04] LABS: Acetaminophen, Random <2.0 ug/mL (10.0-30.0); Alanine Aminotransfer (ALT/SGP 34 U/L (12-78); Albumin, Blood 3.9 g/dL (3.4-5.0); Albumin/Globulin Ratio 1.3 (0.8-1.8); Alk Phos 103 U/L (50-136); Anion Gap 15 mmol/L (3-11); Aspartate Aminotrans (AST/SGOT 25 U/L (12-37); Blood Urea Nitrogen 5 mg/dL (8-24); Bun/Creatinine Ratio 8.4 (12.0-20.0); CO2, Blood 23 mmol/L (21-32); Calcium, Blood 9.1 mg/dL (8.5-10.1); Chloride, Blood 100 mmol/L (98-108); Ethanol (Alcohol), Blood, Med <3 mg/dL; Globulin, Blood 3.1 g/dL (2.2-4.0); Glomerular Filtration Rate 121 (60-); Glucose, Blood 88 mg/dL (70-99); Potassium, Blood 3.6 mmol/L (3.5-5.5); Salicylate 3.5 mg/dL (2.8-20.0); Sodium, Blood 134 mmol/L (136-145)
[2024-12-05 07:13] LABS: Source, Urine Clean Catch
[2024-12-05 07:29] LABS: Appearance, Urine Cloudy (Clear); Bilirubin, Urine Neg (Neg); Blood, Urine 5+ (Neg); Color, Urine Yellow (P-Yellow); Glucose Qualitative, Urine Neg (Neg); Ketones, Urine 4+ (Neg); Leukocyte Esterase, Urine 1+ (Neg); Nitrite, Urine Neg (Neg); Protein, Urine 2+ (Neg); Urobilinogen, Urine 1+ (Normal)
[2024-12-05 07:44] LABS: U Amphetamine Screen DETECTED; U Barbituate Screen Not Detected; U Benzodiazapine Screen Not Detected; U Buprenorphine Screen DETECTED; U Cannabinoids Screen Not Detected; U Cocaine Screen Not Detected; U Methadone Screen Not Detected; U Methamphetamine Screen DETECTED; U Opiates Screen Not Detected; U Oxycodone Screen Not Detected; U Phencyclidine Screen Not Detected
[2024-12-05 08:10] LABS: Bacteria Many /hpf; Mucus Heavy (0-Heavy); Red Blood Cells, Urine 25-50 /hpf (0-2); Squamous Epithelial Cells Many /hpf (Few)
[2024-12-05 08:11] LABS: Calcium Oxalate Crystals Rare /hpf
[2024-12-05] MEDS ORDERED: NS 1,000 ML IV SCH ×3 (13:25→22:45)
[2024-12-05 14:20] LABS: Influenza B, PCR NEGATIVE (NEGATIVE); Resp Syncytial Virus, PCR NEGATIVE (NEGATIVE); SARS-Cov-2 (COVID-19) PCR, MMC NEGATIVE (NEGATIVE)
[2024-12-05] MEDS ORDERED: Benzonatate 100 MG Cap PO ONE (16:10)
[2024-12-05] MEDS ORDERED: Acetaminophen 500 MG Tab PO ONE (18:30)
[2024-12-05] MEDS ORDERED: Oseltamivir Phosphate 75 MG Cap PO SCH (21:00)
[2024-12-05] MEDS ORDERED: Lactated Ringer's 1,000 ML IV ONE (21:55)
[2024-12-05] MEDS ORDERED: FLU VACC TS2024-25(6MOS UP)/PF 45 MCG/0.5 ML SYRINGE IM ONE (22:40)
[2024-12-05] MEDS ORDERED: Magnesium Hydroxide Conc 10 ML UDC PO PRN (22:40)
[2024-12-05] MEDS ORDERED: Ondansetron HCl 2 MG / ML 2ML Vial IV PRN (22:45)
[2024-12-05] MEDS ORDERED: Acetaminophen 325 MG TABLET PO PRN (22:45)
[2024-12-05] MEDS ORDERED: CefTRIAXone Sodium 1,000 MG in NS 100 ML IV SCH (23:00)
[2024-12-05] MEDS ORDERED: CefTRIAXone Sodium 2,000 MG in NS 100 ML IV SCH (23:02)
[2024-12-05] MEDS ORDERED: Benzonatate 100 MG Cap PO PRN (23:30)
[2024-12-06 03:30] LABS: BASOPHILS ABSOLUTE AUTO 0.02 K/mm3 (0.00-0.23); BASOPHILS PERCENT AUTO 0 % (0-2); EOSINOPHILS ABSOLUTE AUTO 0.02 K/mm3 (0.00-0.68); EOSINOPHILS PERCENT AUTO 0 % (0-6); Hemoglobin 12.8 g/dL (11.5-16.0); IMMATURE GRAN ABSOLUTE AUTO 0.03 K/mm3 (0.00-0.10); IMMATURE GRAN PERCENT AUTO 0 % (0-1); LYMPHOCYTES ABSOLUTE AUTO 0.98 K/mm3 (0.84-5.20); LYMPHOCYTES PERCENT AUTO 11 % (21-46); MONOCYTES ABSOLUTE AUTO 0.23 K/mm3 (0.16-1.47); MONOCYTES PERCENT AUTO 3 % (4-13); Mean Corpuscular HGB 32.5 pg (26.0-34.0); Mean Corpuscular HGB Conc 34.6 g/dL (31.5-36.5); Mean Corpuscular Volume 94 fL (80-100); Mean Platelet Volume 10.5 fL (9.1-12.4); NEUTROPHILS ABSOLUTE AUTO 7.32 K/mm3 (1.96-9.15); NEUTROPHILS PERCENT AUTO 85 % (41-73); Platelet Count 230 K/mm3 (150-400); RDW Standard Deviation 44.7 fL (35.1-46.3); Red Blood Cell Count 3.94 M/mm3 (3.80-5.20)
[2024-12-06] MEDS ORDERED: Buprenorphine HCL/Naloxone HCL 8MG-2MG Tab SL ONE (03:45)
[2024-12-06 04:12] LABS: Albumin, Blood 2.4 g/dL (3.4-5.0); Albumin/Globulin Ratio 0.9 (0.8-1.8); Bilirubin, Total 0.5 mg/dL (0.1-1.0); Bun/Creatinine Ratio 16.2 (12.0-20.0); Calcium, Blood 7.7 mg/dL (8.5-10.1); Creatinine, Blood 0.68 mg/dL (0.40-1.00); Globulin, Blood 2.6 g/dL (2.2-4.0); Potassium, Blood 3.1 mmol/L (3.5-5.5)
[2024-12-06] MEDS ORDERED: buprenorphine HCL 2 MG TAB.SUBL SL SCH (08:00)
[2024-12-06] MEDS ORDERED: BUPRENORPHIN-N1 EAC1 SL (08:48)
[2024-12-06] MEDS ORDERED: Famotidine 20 MG Tab PO SCH (09:00)
[2024-12-06] MEDS ORDERED: Enoxaparin 40 MG/0.4 ML SYR SC SCH (09:00)
[2024-12-06] MEDS ORDERED: Polyethylene Glycol 3350 17 gm PO PRN (09:00)
[2024-12-06] MEDS ORDERED: Lactobacil 2-S.Thermo-Bifido 1 1 Cap PO SCH (09:00)
[2024-12-06] MEDS ORDERED: BusPIRone HCl 10 MG Tab PO SCH (09:40)
[2024-12-06] MEDS ORDERED: Potassium Chloride 20 MEQ TabCR PO ONE (10:00)
[2024-12-06] MEDS ORDERED: Nicotine Polacrilex 2 MG Gum PO SCH (16:00)
--- NOTE | 2024-12-06 19:05 | NUR ---
1710- REPORT RECEIVED FROM TRANSPORT MANAGER LUZ Breaux
--- NOTE | 2024-12-06 19:06 | NUR ---
184- PT ARRIVED FROM ER IN STABLE CONDITION. PT ON 2L. ROOM MITIGATED. X2 RN SKIN CHECK PERFORMED WITH OSVALDO GALVEZ. PT REFUSED SKIN CHECK. PT ONLY SHOWED US HER RIGHT THUMB THAT SHE "CHEWED ON." PT HAD SOME OPEN SORES ON HER RIGHT THUMB. PT REFUSED REMOVING HER CLOTHES FOR A COMPLETE SKIN CHECK. PT STATED, "I DON'T FEEL GOOD AND DON'T WANT TO TAKE OFF MY CLOTHES."
[2024-12-06] MEDS ORDERED: Nicotine Polacrilex 2 MG Gum PO PRN (19:35)
[2024-12-06 20:13] VITALS: BP 119/108
[2024-12-06] MEDS ORDERED: NS 250 ML IV PRN (20:20)
[2024-12-06] MEDS ORDERED: TraZODone HCl 50 MG Tab PO SCH (21:00)
[2024-12-06] MEDS ORDERED: Buprenorphine HCL/Naloxone HCL 8MG-2MG Tab SL SCH (21:00)
[2024-12-07 03:33] VITALS: BP 98/57
--- NOTE | 2024-12-07 05:19 | NUR ---
SHIFT SUMMARY PATIENT IS ALERT AND ORIENTED. PATIENT HAS HAD NO ACUTE EVENTS THIS SHIFT. PATIENT HAS REPORTED A HEADACHE AND HAS HAD A TEMP. MEDICATED PER EMAR AND BOTH HAVE RESOLVED. PATIENT HAS NO COMPLAINTS OF SOB, NAUSEA OR VOMITTING THIS SHIFT. PATIENT HAS BEEN SLEEPING MOST OF SHIFT. PATIENT HAS HAD 1:1 VISUAL SITTER ALL SHIFT.
[2024-12-07 07:11] LABS: BASOPHILS ABSOLUTE AUTO 0.02 K/mm3 (0.00-0.23); BASOPHILS PERCENT AUTO 0 % (0-2); EOSINOPHILS PERCENT AUTO 2 % (0-6); Hematocrit 36.9 % (33.0-51.0); Hemoglobin 12.5 g/dL (11.5-16.0); IMMATURE GRAN ABSOLUTE AUTO 0.01 K/mm3 (0.00-0.10); IMMATURE GRAN PERCENT AUTO 0 % (0-1); LYMPHOCYTES ABSOLUTE AUTO 0.97 K/mm3 (0.84-5.20); LYMPHOCYTES PERCENT AUTO 19 % (21-46); MONOCYTES ABSOLUTE AUTO 0.35 K/mm3 (0.16-1.47); MONOCYTES PERCENT AUTO 7 % (4-13); Mean Corpuscular HGB 32.3 pg (26.0-34.0); Mean Corpuscular HGB Conc 33.9 g/dL (31.5-36.5); Mean Corpuscular Volume 95 fL (80-100); Mean Platelet Volume 10.6 fL (9.1-12.4); NEUTROPHILS PERCENT AUTO 72 % (41-73); Platelet Count 191 K/mm3 (150-400); RDW Coefficient Variation 13.2 % (11.7-14.2); RDW Standard Deviation 46.7 fL (35.1-46.3); Red Blood Cell Count 3.87 M/mm3 (3.80-5.20); White Blood Cell Count 5.25 K/mm3 (4.00-11.30)
[2024-12-07 07:12] VITALS: BP 107/70
[2024-12-07 07:32] LABS: Albumin, Blood 2.3 g/dL (3.4-5.0); Albumin/Globulin Ratio 0.8 (0.8-1.8); Bilirubin, Total 0.4 mg/dL (0.1-1.0); Creatinine, Blood 0.54 mg/dL (0.40-1.00); Globulin, Blood 2.8 g/dL (2.2-4.0); Potassium, Blood 3.8 mmol/L (3.5-5.5); Total Protein, Blood 5.1 g/dL (6.4-8.2)
[2024-12-07 15:48] VITALS: BP 96/61
[2024-12-07] MEDS ORDERED: Paliperidone Palmitate 156 MG/ML SYR IM SCH (18:00)
--- NOTE | 2024-12-07 18:10 | NUR ---
SUMMARY- NO ACUTE EVENTS THIS SHIFT. PT WEANED TO RA THIS SHIFT. PT GIVEN TYLENOL FOR GENERAL ACHES. IND IN ROOM WITH 1:1 SITTER. PT DENIED ANY THOUGHTS OF SI.
[2024-12-07 19:40] VITALS: BP 92/63
[2024-12-07] MEDS ORDERED: CefTRIAXone Sodium 1,000 MG in NS 100 ML IV SCH (21:00)
[2024-12-08 00:04] VITALS: BP 98/63
--- NOTE | 2024-12-08 04:14 | NUR ---
SHIFT SUMMARY PATIENT IS ALERT AND ORIENTED. PATIENT HAS HAD NO ACUTE EVENTS THIS SHIFT. VITAL SIGNS REVIEWED. PATIENT HAS HAD 1:1 SITTER ALL SHIFT. PATIENT HAS HAD NO COMPLAINTS OF SOB, NAUSEA, VOMITTING OR PAIN THIS SHIFT. PATIENT HAS BEEN ON RA ALL SHIFT. PATIENT STATED SHE FEELS BETTER THAN PRIOR SHIFTS. BED IN LOCKED AND LOWEST POSITION.
[2024-12-08 05:12] VITALS: BP 105/77
[2024-12-08 06:00] LABS: BASOPHILS ABSOLUTE AUTO 0.01 K/mm3 (0.00-0.23); BASOPHILS PERCENT AUTO 0 % (0-2); EOSINOPHILS ABSOLUTE AUTO 0.19 K/mm3 (0.00-0.68); EOSINOPHILS PERCENT AUTO 5 % (0-6); Hematocrit 39.3 % (33.0-51.0); Hemoglobin 13.4 g/dL (11.5-16.0); IMMATURE GRAN ABSOLUTE AUTO 0.01 K/mm3 (0.00-0.10); IMMATURE GRAN PERCENT AUTO 0 % (0-1); LYMPHOCYTES ABSOLUTE AUTO 1.55 K/mm3 (0.84-5.20); LYMPHOCYTES PERCENT AUTO 39 % (21-46); MONOCYTES ABSOLUTE AUTO 0.39 K/mm3 (0.16-1.47); MONOCYTES PERCENT AUTO 10 % (4-13); Mean Corpuscular HGB 32.3 pg (26.0-34.0); Mean Corpuscular HGB Conc 34.1 g/dL (31.5-36.5); Mean Corpuscular Volume 95 fL (80-100); Mean Platelet Volume 10.5 fL (9.1-12.4); NEUTROPHILS ABSOLUTE AUTO 1.87 K/mm3 (1.96-9.15); NEUTROPHILS PERCENT AUTO 47 % (41-73); Platelet Count 222 K/mm3 (150-400); RDW Standard Deviation 45.8 fL (35.1-46.3); Red Blood Cell Count 4.15 M/mm3 (3.80-5.20); White Blood Cell Count 4.02 K/mm3 (4.00-11.30)
[2024-12-08 06:26] LABS: Albumin, Blood 2.3 g/dL (3.4-5.0); Albumin/Globulin Ratio 0.8 (0.8-1.8); Bilirubin, Total 0.5 mg/dL (0.1-1.0); Calcium, Blood 8.3 mg/dL (8.5-10.1); Creatinine, Blood 0.58 mg/dL (0.40-1.00); Total Protein, Blood 5.3 g/dL (6.4-8.2)
[2024-12-08 07:44] VITALS: BP 114/59
--- NOTE | 2024-12-08 18:37 | NUR ---
SHIFT SUMMARY PATIENT A/OX4, ABLE TO MAKE NEEDS KNOWN. WITHDRAWN WITH FLAT AFFECT. 1:1 SITTER AT BEDSIDE. TYLENOL ADMINISTERED THIS AM FOR BODY ACHES. NICOTINE GUM ADMINIATERED PER DEC PER PATIENT REQUEST. TESSALON PEARLS ADMINISTERED FOR COUGH. PATIENT REMAINS AFEBRILE THIS SHIFT. GOOD APPETITE AND REQUESTING SNACKS THROGHOUT THE SHIFT. NO OTHER CONCERNS AT THIS TIME. PLAN TO DISCHAREG TO [facility] 12/12.
[2024-12-08 19:16] VITALS: BP 101/64
[2024-12-09 05:16] VITALS: BP 111/69
[2024-12-09 05:26] LABS: Hemoglobin 14.1 g/dL (11.5-16.0); Mean Corpuscular HGB Conc 34.4 g/dL (31.5-36.5); Mean Corpuscular Volume 93 fL (80-100); Mean Platelet Volume 10.3 fL (9.1-12.4); Platelet Count 259 K/mm3 (150-400); RDW Coefficient Variation 12.7 % (11.7-14.2); RDW Standard Deviation 43.7 fL (35.1-46.3); Red Blood Cell Count 4.41 M/mm3 (3.80-5.20); White Blood Cell Count 4.13 K/mm3 (4.00-11.30)
[2024-12-09 05:47] LABS: Calcium, Blood 8.4 mg/dL (8.5-10.1); Creatinine, Blood 0.6 mg/dL (0.40-1.00)
--- NOTE | 2024-12-09 05:48 | NUR ---
AAOX4, COOPERATIVE WTTH CARES, BUT FLAT AFFECT. INFLUENZA A +, DROPLET PRECAUTIONS. SLEPT THROUGHTOUT THE NIGHT WITH NO ACUTE NEEDS. SITTER IN ROOM. PLAN: [facility] AFTER CLEARED FOR THE FLU
[2024-12-09 05:49] LABS: BAND PERCENT MAN 2 % (0-8); BASOPHILS PERCENT MAN 0 % (0-2); EOSINOPHILS ABSOLUTE MAN 0.12 K/mm3 (0.00-0.68); EOSINOPHILS PERCENT MAN 3 % (0-6); LYMPHOCYTES % ATYPICAL MANUAL 2 % (0-0); LYMPHOCYTES ABSOLUTE MAN 2.27 K/mm3 (0.84-5.20); LYMPHOCYTES PERCENT MAN 53 % (21-46); MONOCYTES ABSOLUTE MAN 0.16 K/mm3 (0.16-1.47); MONOCYTES PERCENT MAN 4 % (4-13); NEUTROPHILS ABSOLUTE MAN 1.56 K/mm3 (1.96-9.15); SEG NEUTROPHILS PERCENT MAN 36 % (41-73); TOTAL CELLS COUNTED 100
--- NOTE | 2024-12-09 07:18 | NUR ---
ASSUMED CARE OF PATIENT. SLEEPING DURING SHIFT-CHANGE REPORT. 1:1 SITTING, LAKSHMI, AT DOOR. BED IN LOWEST POSITION. CALL LIGHT WITHIN REACH.
[2024-12-09 07:32] VITALS: BP 98/63
[2024-12-09] MEDS ORDERED: Ketorolac Tromethamine 15mg Vial IV PRN (09:20)
--- NOTE | 2024-12-09 09:44 | NUR ---
PATIENT REPORTS STARTING MENSES. PROVIDED WITH JOB PAD.
--- NOTE | 2024-12-09 11:55 | NUR ---
PATIENT ORDERED LUNCH OF KWESI SALAD AND VASQUEZ SMOOTHIE FROM [facility]IA DOOR DASH DELIVERY. BAG CHECKED BY LAKSHMI CALDERON, PRIOR TO GIVING TO PATIENT. NO CONTRABAND NOTED.
--- NOTE | 2024-12-09 15:01 | NUR ---
C/O GENERALIZED BODY ACHES; PRN IV TORADOL ADMINISTERED.
[2024-12-09 15:30] VITALS: BP 83/57
[2024-12-09 16:35] LABS: Chlamydia Trachomatis Urine NOT DETECTED (NOT DETECT); Neisseria Gonorrhoea Urine NOT DETECTED (NOT DETECT)
--- NOTE | 2024-12-09 16:54 | NUR ---
PATIENT REPORTS BLOOD COMING FROM RECTUM AND STOOL "SOFT" AND "CLUMPY" AND JUST "FALLING OUT". CONCERNED FOR RECTAL PROLAPSE. VISUAL ASSESSMENT DONE; NO VISUAL HEMORRHOIDS OR BLEEDING NOTED. NO ABNORMALITIES SEEN. DID NOT PALPATE OR PERFORM DIGITAL EXAM, VISUAL ONLY.
--- NOTE | 2024-12-09 18:29 | NUR ---
END OF SHIFT SUMMARY: A&Ox4. PLEASANT AND COOPERATIVE WITH CARE. CALLS APPROPRIATELY AND IS ABLE TO ADVOCATE NEEDS EFFECTIVELY. CONTINENT OF BOWEL AND BLADDER. INITIATION OF MENSES TODAY; PROVIDED c MENSTRUAL PAD AND EXTRAS IN DRAWER OUTSIDE OF ROOM. SOME MALAISE AND PAIN NOTED TODAY FOR WHICH SHE RECEIVED PRN APAP. 1:1 SITTER. REPORTS FEELING LESS ANXIETY/DEPRESSION AND THOUGHTS OF SUICIDE. ORDERED DOOR DASH FOR LUNCH; MEAL BAG CHECKED FOR CONTRABAND AND PLASTIC CUTLERY. BED IN LOWEST POSITION, CALL LIGHT WITHIN REACH, ALL NEEDS MET. REPORT TO ONCOMING NURSE.
[2024-12-09 19:46] VITALS: BP 94/70
--- NOTE | 2024-12-10 05:02 | NUR ---
SHIFT SUMM: PT IS A 34 YO FULL CODE WHO IS HERE FOR SI WITH A PLAN AND A 1:1 SITTER. PT IS ON DROPLET PREC FPR INFLUENZA A. PT HAS BEEN RELAXING AND SLEEPING MOST OF THE SHIFT AND COOPERATIVE W/CARE. PT MAKES NEEDS KNOWN.
[2024-12-10 05:24] VITALS: BP 89/60
[2024-12-10 08:17] VITALS: BP 98/69
--- NOTE | 2024-12-10 11:25 | NUR ---
NOTES PT REPORTS NO CURRENT THOUGHTS OR PLAN FOR SUICIDE, BUT "FEELING ANXIETY AND DEPRESSION"
[2024-12-10 14:44] VITALS: BP 113/82
[2024-12-10] MEDS ORDERED: Docusate Sodium/Senna 1 Tab PO PRN (15:25)
--- NOTE | 2024-12-10 18:49 | NUR ---
SHIFT SUMMARY PT A&OX4. PT ADMITTED DUE TO SI WITH A PLAN. PT REPORTED NO PLAN. PT REPORTED PAIN "ALL OVER" GAVE TORADOL. PT INDEPENDENT IN ROOM. PT HAS 1 ON 1 SITTER. SAFETY PRECAUTIONS IN PLACE. PT EATS ADEQUATE. GAVE NICATINE GUM TODAY PER PT REQUEST. SUICIDE PRECAUTIONS IN PLACE. SUICIDE SAFETY AND MITIGATION COMPLETE. SUICIDE SAFETY PLAN COMPLETE TODAY. VSS. PT IN BED, BED IN LOWEST POSITION. PT ABLE TO MAKE NEEDS KNOWN.
[2024-12-10 20:00] VITALS: BP 103/66
[2024-12-11 05:15] VITALS: BP 117/74
--- NOTE | 2024-12-11 06:05 | NUR ---
SHIFT SUMM: PT HAS BEEN RELAXING/ ASLEEP MOST OF THE SHIFT. PT HAS A 1:1 SITTER FOR SI WITH A PLAN. PT MAKES NEEDS KNOWN AND PAIN HAS BEEN MANAGED PER EMAR. WHEN PT HAS TO GO TO BATHROOM I UNLOCK THE BATHROM DOOR AND OBSERVE PT FOR SAFETY.
--- NOTE | 2024-12-11 08:30 | NUR ---
NOTE PT REPORTS "NO PREPARATION OR PLANS OR THOUGHTS OF SUICIDE." REPORTS "ANXIETY AND DEPRESSION."
[2024-12-11 08:33] VITALS: BP 114/67
--- NOTE | 2024-12-11 10:05 | NUR ---
NOTE KVNG NOTIFIED THIS RN THAT PT IS NOT EATING ADEQUATE. I TALKED TO PT ABOUT ORDERING A FINGER FOOD DIET. PT DENIED NEED FOR FINGER FOOD. OFFERED PT SNACKED, PT REQUESTED CHEDDER CHEESE.
[2024-12-11 16:08] VITALS: BP 90/59
--- NOTE | 2024-12-11 19:08 | NUR ---
SHIFT SUMMARY PT A&OX4. PT ADMITTED DUE TO SI WITH A PLAN. PT REPORTED NO PLAN. PT REPORTED PAIN "ALL OVER" GAVE TORADOL. PT INDEPENDENT IN ROOM. PT HAS 1 ON 1 SITTER. SAFETY PRECAUTIONS IN PLACE. PT EATS ADEQUIATE. GAVE NICATINE GUM TODAY PER PT REQUEST. SUICIDE PRECAUTIONS IN PLACE. SUICIDE SAFETY AND MITIGATION COMPLETE. SUICIDE RISK ASSESSMENT COMPLETE. VSS. PT IN BED, BED IN LOWEST POSTION. PT ABLE TO MAKE NEEDS KNOWN. PLAN TROY GET TRANSFERED TO [facility] TOMORROW.
[2024-12-11 19:25] VITALS: BP 109/59
--- NOTE | 2024-12-12 03:23 | NUR ---
SHIFT SUMM: PT IS CURRENTLY HERE FOR SI WITH A PLAN AND A 1:1 SITTER OUTSIDE THE DOOR. PT HAS BEEN RELAXING/ ASLEEP MOST OF THE SHIFT AND SUPERVISED WHEN SHE USES THE RESTROOM. PT HAS BEEN MORE POSITIVE TONIGHT AND WAS MORE TALKATIVE THIS SHIFT THAN WHAT SHE HAS BEEN. PT DENIES HAVING THOUGHTS OF HARMING HERSELF SINCE THE LAST TIME SHE WAS ASKED. PT REPORTS FEELING BETTER AND NO COMPLAINTS OF SOB. PT SEEMS EXCITED TO GO TO [facility] TODAY IS THE [facility]. PT MAKES NEEDS KNOWN AND WAS MEDICATED FOR PAIN PER EMAR.
[2024-12-12 04:43] VITALS: BP 116/71
[2024-12-12 09:00] VITALS: BP 105/78
--- NOTE | 2024-12-12 09:05 | NUR ---
NOTE PT REPORTS NO PLAN OR THOUGHTS FOR SUICIDE. PT REPORTS "ANXIETY DEPRESSION THAT IS ABOUT THE SAME FROM YESTERDAY." PT 1 ON 1 SITTER.
[2024-12-12 15:39] VITALS: BP 103/68
--- NOTE | 2024-12-12 16:09 | NUR ---
NOTE PT ESCORTED TO BATHROOM BY SITTER. SITTER REPORTED PT PUKING, THIS RN ASSESSED PT, PT REPORTED "NOT FEELING WELL" GAVE ALBINA.
[2024-12-12] MEDS ORDERED: ACET325 PO (16:21)
[2024-12-12] MEDS ORDERED: DOCUZEN 8.6-501 EACH PO (16:22)
[2024-12-12] MEDS ORDERED: FAMO20 PO (16:22)
[2024-12-12] MEDS ORDERED: IBUP400 PO (16:23)
[2024-12-12] MEDS ORDERED: NICO2 PO (16:24)
--- NOTE | 2024-12-12 18:43 | NUR ---
SHIFT SUMMARY PT A&OX4. PT ADMITTED DUE TO SI WITH A PLAN. PT REPORTED NO PLAN. PT REPORTED PAIN ALL OVER GAVE TORADOL. PT INDEPENDENT IN ROOM. PT HAS 1 ON 1 SITTER. SAFETY PRECAUTIONS IN PLACE. PT PROBABLY DOESNT EAT ADEQUATE. SUICIDE PRECAUTIONS IN PLACE. SUICIDE SAFETY AND MIGATION COMPLETE. SUICIDE RISK ASSESSMENT COMPLETE. VSS. PT IN BED, BED IN LOWEST POSITION. PT ABLE TO MAKE NEEDS KNOWN. PLAN IS FOR PT TO TRANSFER TO [facility] OR NURSERY TRANSPLANTER.
[2024-12-12 19:46] VITALS: BP 97/73
[2024-12-12] MEDS ORDERED: ERZOFRI156 MG/1 M IM (22:44)
--- NOTE | 2024-12-12 23:19 | NUR ---
DISCHARGE PT TO BE DISCHARGED TO U. REPORT GIVEN TO U NURSE. IV REMOVED. HS MEDS GIVEN PRIOR TO DISCHARGE. ALL BELONGINGS OOR AND W/ PT. VSS. NO ACUTE EVENTS.
[2024-12-13 10:12] LABS: Influenza A, PCR POSITIVE (NEGATIVE)
[2024-12-13 14:36] LABS: HEPATITIS A ANTIBODY, IGM Negative (Negative); HEPATITIS B CORE ANTIBODY, IGM Negative (Negative); HEPATITIS B SURFACE ANTIGEN Negative (Negative); HEPATITIS C AB CIA INTERP Low Pos (Negative); HEPATITIS C ANTIBODY CIA INDEX 4.53 IV
[2024-12-13 19:33] LABS: HIV 1,2 COMBO ANTIGEN/ANTIBODY Negative (Negative)
[2024-12-15 07:15] LABS: HCV QNT BY NAAT (IU/ML) Not Detected; HCV QNT BY NAAT (LOG IU/ML) Not Detected; HCV QNT BY NAAT INTERP Not Detected (Not Detected)
[2024-12-15] MEDS ORDERED: FLUO10 PO (08:48)
== END 2024-12-12 21:01 | disposition home or self-care (01) | DRG 871 ==
LOC: ER 05:03 → EOR 05:04 → ERHOLD 05:04 → EOR 05:04 → ERHOLD 22:38 → EDBEDREQSVC 23:08 → EDBEDREQ 23:08 → EDBEDREQTM 23:08 → ERHOLD 12-06 13:00 → MEDS 12-06 13:00
PROVIDERS: Emergency Medicine; Registered Nurse; Student in an Organized Health Care Education/Training Program; ADMIT Student in an Organized Health Care Education/Training Program
DX: A41.89 Other specified sepsis (principal); J96.01 Acute respiratory failure with hypoxia; R45.851 Suicidal ideations; N39.0 Urinary tract infection, site not specified; J10.1 Influenza due to other identified influenza virus with other respiratory manifestations; F41.9 Anxiety disorder, unspecified; E03.9 Hypothyroidism, unspecified; K21.9 Gastro-esophageal reflux disease without esophagitis; E11.9 Type 2 diabetes mellitus without complications; E78.5 Hyperlipidemia, unspecified; R65.20 Severe sepsis without septic shock; F25.0 Schizoaffective disorder, bipolar type; Z96.642 Presence of left artificial hip joint; F17.210 Nicotine dependence, cigarettes, uncomplicated; F15.10 Other stimulant abuse, uncomplicated; F11.10 Opioid abuse, uncomplicated; Z28.21 Immunization not carried out because of patient refusal; Z88.8 Allergy status to other drugs, medicaments and biological substances; Z79.899 Other long term (current) drug therapy; Z90.49 Acquired absence of other specified parts of digestive tract
CPT/HCPCS: 0241U; 36415; 51798; 71045; 80048; 80053; 80074; 80320; 81001; 81025; 83605; 84145; 85025; 86592; 87040; 87086; 87389; 87491; 87522; 87591; 93005; 93010; 94760; 94762; 99285-25; A9270; G0378; G0480; J0696; J1650; J1885; J2405; J7030; J7050; J7120

== ENCOUNTER 2024-12-05 11:01 | Inpatient (IN) | payer MEDICARE, OTHER ==
[~2024-12-05] VITALS: Ht 175.3 cm; Wt 83.8 kg
[2024-12-06] MEDS ORDERED: BUPRENORPHIN-N1 EAC1 SL ×2 (08:48)
[2024-12-12] MEDS ORDERED: ACET325 PO ×2 (16:21)
[2024-12-12] MEDS ORDERED: FAMO20 PO ×2 (16:22)
[2024-12-12] MEDS ORDERED: DOCUZEN 8.6-501 EACH PO (16:22)
[2024-12-12] MEDS ORDERED: IBUP400 PO (16:23)
[2024-12-12] MEDS ORDERED: NICO2 PO ×2 (16:24)
[2024-12-12] MEDS ORDERED: Nicotine Polacrilex 2 MG Gum PO PRN (21:20)
[2024-12-12] MEDS ORDERED: Ibuprofen 600 MG Tab PO PRN (21:25)
[2024-12-12] MEDS ORDERED: Acetaminophen 325 MG TABLET PO PRN (21:25)
[2024-12-12] MEDS ORDERED: Melatonin 3 MG Tab PO PRN (21:25)
[2024-12-12] MEDS ORDERED: Aluminum Hydroxide 320MG/5ML 473 ML PO PRN (21:25)
[2024-12-12] MEDS ORDERED: Calcium Carbonate 500 MG Tab Chew PO PRN (21:25)
[2024-12-12] MEDS ORDERED: TraZODone HCl 50 MG Tab PO PRN (21:30)
[2024-12-12] MEDS ORDERED: HydrOXYzine Pamoate 50 MG Cap PO PRN (21:30)
[2024-12-12] MEDS ORDERED: OLANZapine ODT 10 MG Tab MM PRN (21:30)
[2024-12-12] MEDS ORDERED: DiphenhydrAMINE HCl 50 MG Cap PO PRN (21:30)
[2024-12-12] MEDS ORDERED: FLU VACC TS2024-25(6MOS UP)/PF 45 MCG/0.5 ML SYRINGE IM ONE (21:30)
[2024-12-12] MEDS ORDERED: LORazepam 2 MG Tab PO PRN (21:30)
[2024-12-12] MEDS ORDERED: Polyethylene Glycol 3350 17 gm PO PRN (21:35)
[2024-12-12] MEDS ORDERED: Ondansetron 4 MG SoluTab MM PRN (21:40)
[2024-12-12 21:43] VITALS: BP 97/64
--- NOTE | 2024-12-12 22:15 | NUR ---
ADMIT PATIENT ARRIVED TO [facility] FROM [facility],( NOW OUT OF ISOLATION FOR FLU A.) WITH KIMBERLY A AND SECURITY. CHANGED INTO UNIT SCRUBS. COOPERATIVE WITH INTAKE QUESTIONS AND PAPERWORK. VERBALIZED THAT SI THOUGHTS COME AND GO, FEELS IF HER MEDICATIONS NEED TO BE REEVALUATED AND ADJUSTED. DENIES HI, OR AVH. PATIENT VERBALIZED THAT SHE IS HOMELESS, AT TIMES LIVING IN AIR B&B. PATIENT SHOWN ROOM AND INTRODUCED TO HER ROOMMATE.
[2024-12-12] MEDS ORDERED: ERZOFRI156 MG/1 M IM ×2 (22:44)
--- NOTE | 2024-12-13 04:10 | NUR ---
SHIFT SUMMARY AFTER ADMIT COMPLETE PATIENT WENT TO BED. PATIENT VERBALIZED SI THOUGHTS COME AND GO, PLAN IS TO OD ON MEDICATIONS. PATIENT DENIES PLAN TO HARM SELF WHILE HERE. DENIES HI, OR AVH. CLEARED FROM ISOLATION FOR FLU A, CONTINUES TO HAVE OCCASIONAL MOIST COUGH. APPEARS TO BE SLEEPING WELL WITH RESP EVEN AND UNLABORED. CONTINUE TO MONITOR Q15MIN
[2024-12-13] MEDS ORDERED: Famotidine 20 MG Tab PO SCH (07:30)
[2024-12-13] MEDS ORDERED: Buprenorphine HCL/Naloxone HCL 8MG-2MG Tab SL SCH (09:00)
[2024-12-13] MEDS ORDERED: Multivitamins 1 Tab PO SCH (09:00)
[2024-12-13] MEDS ORDERED: BusPIRone HCl 10 MG Tab PO SCH (09:00)
--- NOTE | 2024-12-13 12:27 | NUR ---
HOSPITAL DISCHARGE INFORMATION [facility] contacted this remote mortgage underwriter to request reason for patient admission. Per [employer], patient to return to [facility] at discharge. [employer] to contact this remote mortgage underwriter with address information by end of 12/14 [facility] charge gang weigher notified
--- NOTE | 2024-12-13 16:59 | NUR ---
SHIFT SUMMARY: PT ALERT, ORIENTED AND COOPERATIVE. COMPLIANT WITH MEDICATIONS. DENIED SI, HI AND AVH. PT SPENT MUCH OF THE DAY ON HER BED RESTING. DISCUSSED WITH PT THE NEED PARTICIPATE IN GROUPS WHILE ON THE UNIT. PT STATED CLEAR UNDERSTANDING. PT HAD TO BE ENCOURAGED TO ATTEND EACH GROUP BUT DID GO WITH ENCOURAGEMENT.
--- NOTE | 2024-12-14 04:44 | NUR ---
A&OX3-4, Patient is still laying down in bed between activities and continues to need coaxing to get up and participate. Patient was pleasant and cooperative with medications and evening snack. Went right back to bed after snack and has been sleeping since then. Sleep hours so far have been 7.5 hours overnight. Will continue close observation every 15 minutes and as needed for comfort and safety
[2024-12-14 08:17] VITALS: BP 103/65
[2024-12-14 08:32] VITALS: BP 94/56
[2024-12-14] MEDS ORDERED: FLUoxetine HCl 10 MG Cap PO SCH (11:00)
--- NOTE | 2024-12-14 17:27 | NUR ---
HOSPTIAL DISCHARGE INFORMATION Patient will [facility] to [facility] on [address] [place] [id number]
--- NOTE | 2024-12-14 18:01 | NUR ---
SHIFT SUMMARY PT A/O X4 AND COOPERATIVE WITH CARE. SHE DENIES SI, HI, OR ANY HALLUCINATIONS. SHE DECLINED BREAKFAST THIS AM BUT DID PARTICIPATE IN GROUPS. WHEN SHE IS NOT IN GROUP OR MEALS SHE OFTEN ISOLATES IN HER ROOM. PT TO POTENTIALLY DISCHARGE HOME TOMORROW.
[2024-12-14 20:36] VITALS: BP 89/57
--- NOTE | 2024-12-15 04:34 | NUR ---
SHIFT SUMMARY PT IN BED, AWAKE AT START OF SHIFT. SHE DENIES ANY SI, HI, THOUGHTS OF SELF HARM OR HALLUCINATIONS. PT STATES SHE IS "DEPRESSED AND SAD" VERBALIZES CONCERN REGARDING WHAT IS GOING TO HAPPEN AFTER DISCHARGE BUT DOES WANT TO BE DISCHARGED. PT COMPLIANT WITH MEDICAITONS AND RECEIVED PRN MELATONIN AND TRAZODONE. PT HAD EVENING SNACK AND WENT TO BED. SHE HAS APPEARED TO SLEEP THROUGHOUT THE NIGHT WITH RESPIRATIONS CONFIRMED. Q15 MINUTE CHECKS TO CONINTUE PER UNIT PROTOCOL AND FOR SAFETY.
[2024-12-15 08:15] VITALS: BP 91/65
[2024-12-15] MEDS ORDERED: FLUO10 PO ×2 (08:48)
--- NOTE | 2024-12-15 14:18 | NUR ---
DISCHARGE PT A/O X4 AND COOPERATIVE WITH CARE. SHE DENIES SI, HI, OR ANY HALLUCINATIONS. NEW PRESCRIPTION FAXED TO [facility]. DISCHARGE PAPER WORK GONE OVER WITH PATIENT AND SHE VERBALIZED UNDERSTANDING. BELONGINGS RETURNED TO PT AND SHE WAS PICKED UP BY [facility].
[2024-12-16 06:35] LABS: HCV QNT BY NAAT (IU/ML) Not Detected; HCV QNT BY NAAT (LOG IU/ML) Not Detected; HCV QNT BY NAAT INTERP Not Detected (Not Detected)
[2024-12-16] MEDS ORDERED: ONDA4ODT MM (10:02)
[2025-01-07] MEDS ORDERED: Paliperidone Palmitate 156 MG/ML SYR IM SCH (09:00)
== END 2024-12-15 13:00 | disposition home or self-care (01) | DRG 885 ==
LOC: BHU
PROVIDERS: ADMIT Psychiatry & Neurology Psychiatry
DX: F20.9 Schizophrenia, unspecified (principal); J96.01 Acute respiratory failure with hypoxia; A41.89 Other specified sepsis; N39.0 Urinary tract infection, site not specified; Z59.00 Homelessness unspecified; E03.9 Hypothyroidism, unspecified; K21.9 Gastro-esophageal reflux disease without esophagitis; E11.9 Type 2 diabetes mellitus without complications; F15.90 Other stimulant use, unspecified, uncomplicated; F11.90 Opioid use, unspecified, uncomplicated; E78.5 Hyperlipidemia, unspecified; F41.9 Anxiety disorder, unspecified; Z96.652 Presence of left artificial knee joint; Z90.49 Acquired absence of other specified parts of digestive tract; F17.210 Nicotine dependence, cigarettes, uncomplicated; F10.90 Alcohol use, unspecified, uncomplicated; Z88.8 Allergy status to other drugs, medicaments and biological substances; Z79.899 Other long term (current) drug therapy; J10.1 Influenza due to other identified influenza virus with other respiratory manifestations; Z99.81 Dependence on supplemental oxygen; Z79.890 Hormone replacement therapy
CPT/HCPCS: 36415; 87522; A9270

== ENCOUNTER 2024-12-16 05:16 | Emergency (ER) | payer OTHER ==
[~2024-12-16] VITALS: Ht 175.3 cm; Wt 83.5 kg
[~2024-12-16 05:16] MED LIST changes: +ACET325 PO; +BUPRENORPHIN-N1 EAC1 SL; +DOCUZEN 8.6-501 EACH PO; +ERZOFRI156 MG/1 M IM; +FAMO20 PO; +FLUO10 PO; +IBUP400 PO; +NICO2 PO
[2024-12-16] MEDS ORDERED: Ondansetron HCl 2 MG / ML 2ML Vial IV ONE (05:25)
[2024-12-16] MEDS ORDERED: Lactated Ringer's 1,000 ML IV ONE (05:25)
[2024-12-16 05:43] LABS: BASOPHILS ABSOLUTE AUTO 0.03 K/mm3 (0.00-0.23); BASOPHILS PERCENT AUTO 0 % (0-2); EOSINOPHILS ABSOLUTE AUTO 0.08 K/mm3 (0.00-0.68); EOSINOPHILS PERCENT AUTO 1 % (0-6); Hematocrit 43.2 % (33.0-51.0); Hemoglobin 15.2 g/dL (11.5-16.0); IMMATURE GRAN ABSOLUTE AUTO 0.05 K/mm3 (0.00-0.10); IMMATURE GRAN PERCENT AUTO 1 % (0-1); LYMPHOCYTES ABSOLUTE AUTO 3.31 K/mm3 (0.84-5.20); LYMPHOCYTES PERCENT AUTO 46 % (21-46); MONOCYTES ABSOLUTE AUTO 0.64 K/mm3 (0.16-1.47); MONOCYTES PERCENT AUTO 9 % (4-13); Mean Corpuscular HGB 31.8 pg (26.0-34.0); Mean Corpuscular HGB Conc 35.2 g/dL (31.5-36.5); Mean Corpuscular Volume 90 fL (80-100); Mean Platelet Volume 9.7 fL (9.1-12.4); NEUTROPHILS ABSOLUTE AUTO 3.05 K/mm3 (1.96-9.15); NEUTROPHILS PERCENT AUTO 43 % (41-73); Platelet Count 432 K/mm3 (150-400); RDW Coefficient Variation 12.5 % (11.7-14.2); RDW Standard Deviation 41.3 fL (35.1-46.3); Red Blood Cell Count 4.78 M/mm3 (3.80-5.20); White Blood Cell Count 7.16 K/mm3 (4.00-11.30)
[2024-12-16] MEDS ORDERED: Buprenorphine HCL/Naloxone HCL 8MG-2MG Tab SL ONE (06:05)
[2024-12-16 06:07] LABS: Albumin, Blood 3.7 g/dL (3.4-5.0); Albumin/Globulin Ratio 1.1 (0.8-1.8); Bilirubin, Total 0.4 mg/dL (0.1-1.0); Bun/Creatinine Ratio 15.2 (12.0-20.0); Calcium, Blood 9.1 mg/dL (8.5-10.1); Creatinine, Blood 0.66 mg/dL (0.40-1.00); Globulin, Blood 3.5 g/dL (2.2-4.0); Potassium, Blood 3.6 mmol/L (3.5-5.5); Total Protein, Blood 7.2 g/dL (6.4-8.2)
[2024-12-16] MEDS ORDERED: NS 1,000 ML IV SCH (06:35)
[2024-12-16] MEDS ORDERED: ONDA4ODT MM (10:02)
== END 2024-12-16 10:10 | disposition home or self-care (01) ==
LOC: ER 05:16
PROVIDERS: Student in an Organized Health Care Education/Training Program
DX: R11.2 Nausea with vomiting, unspecified (principal); E86.0 Dehydration; Z76.0 Encounter for issue of repeat prescription; K21.9 Gastro-esophageal reflux disease without esophagitis; E78.5 Hyperlipidemia, unspecified; E11.9 Type 2 diabetes mellitus without complications; F17.210 Nicotine dependence, cigarettes, uncomplicated; Z79.899 Other long term (current) drug therapy
CPT/HCPCS: 80053; 83605; 83690; 85025; 96361; 96374; 99284-25; A9270; J2405; J7030; J7120

== ENCOUNTER 2024-12-16 16:04 | Observation (INO) | payer OTHER ==
[~2024-12-16] VITALS: Ht 175.3 cm; Wt 83.5 kg
[~2024-12-16 16:04] MED LIST changes: +ONDA4ODT MM
[2024-12-16 16:53] LABS: BASOPHILS ABSOLUTE AUTO 0.03 K/mm3 (0.00-0.23); BASOPHILS PERCENT AUTO 0 % (0-2); EOSINOPHILS ABSOLUTE AUTO 0.07 K/mm3 (0.00-0.68); EOSINOPHILS PERCENT AUTO 1 % (0-6); Hematocrit 41.9 % (33.0-51.0); Hemoglobin 14.4 g/dL (11.5-16.0); IMMATURE GRAN ABSOLUTE AUTO 0.02 K/mm3 (0.00-0.10); IMMATURE GRAN PERCENT AUTO 0 % (0-1); LYMPHOCYTES ABSOLUTE AUTO 2.15 K/mm3 (0.84-5.20); LYMPHOCYTES PERCENT AUTO 31 % (21-46); MONOCYTES ABSOLUTE AUTO 0.47 K/mm3 (0.16-1.47); MONOCYTES PERCENT AUTO 7 % (4-13); Mean Corpuscular HGB 31.7 pg (26.0-34.0); Mean Corpuscular HGB Conc 34.4 g/dL (31.5-36.5); Mean Corpuscular Volume 92 fL (80-100); Mean Platelet Volume 9.8 fL (9.1-12.4); NEUTROPHILS ABSOLUTE AUTO 4.12 K/mm3 (1.96-9.15); NEUTROPHILS PERCENT AUTO 60 % (41-73); Platelet Count 433 K/mm3 (150-400); RDW Coefficient Variation 12.7 % (11.7-14.2); Red Blood Cell Count 4.54 M/mm3 (3.80-5.20); White Blood Cell Count 6.86 K/mm3 (4.00-11.30)
[2024-12-16 17:10] LABS: Alanine Aminotransfer (ALT/SGP 56 U/L (12-78); Albumin, Blood 3.5 g/dL (3.4-5.0); Albumin/Globulin Ratio 1.1 (0.8-1.8); Alk Phos 87 U/L (50-136); Anion Gap 12 mmol/L (3-11); Aspartate Aminotrans (AST/SGOT 28 U/L (12-37); Bilirubin, Total 0.6 mg/dL (0.1-1.0); Blood Urea Nitrogen 11 mg/dL (8-24); CO2, Blood 24 mmol/L (21-32); Calcium, Blood 8.8 mg/dL (8.5-10.1); Chloride, Blood 102 mmol/L (98-108); Creatinine, Blood 0.73 mg/dL (0.40-1.00); Ethanol (Alcohol), Blood, Med <3 mg/dL; Globulin, Blood 3.2 g/dL (2.2-4.0); Glomerular Filtration Rate 111 (60-); Glucose, Blood 91 mg/dL (70-99); Potassium, Blood 3.7 mmol/L (3.5-5.5); Sodium, Blood 134 mmol/L (136-145); Total Protein, Blood 6.7 g/dL (6.4-8.2)
[2024-12-16 17:11] LABS: Salicylate 1.9 mg/dL (2.8-20.0)
[2024-12-16 17:22] LABS: Acetaminophen, Random <2.0 ug/mL (10.0-30.0)
[2024-12-16 17:30] LABS: U Amphetamine Screen Not Detected; U Barbituate Screen Not Detected; U Benzodiazapine Screen Not Detected; U Buprenorphine Screen DETECTED; U Cannabinoids Screen Not Detected; U Cocaine Screen Not Detected; U Methadone Screen Not Detected; U Methamphetamine Screen Not Detected; U Opiates Screen Not Detected; U Oxycodone Screen Not Detected; U Phencyclidine Screen Not Detected
[2024-12-16 21:14] LABS: Influenza A, PCR NEGATIVE (NEGATIVE); Influenza B, PCR NEGATIVE (NEGATIVE); Resp Syncytial Virus, PCR NEGATIVE (NEGATIVE); SARS-Cov-2 (COVID-19) PCR, MMC NEGATIVE (NEGATIVE)
[2024-12-17] MEDS ORDERED: BusPIRone HCl 10 MG Tab PO SCH (14:00)
[2024-12-17] MEDS ORDERED: Buprenorphine HCL/Naloxone HCL 8MG-2MG Tab SL SCH (15:20)
[2024-12-17] MEDS ORDERED: Nicotine Polacrilex 2 MG Gum PO PRN (16:25)
[2024-12-17] MEDS ORDERED: TraZODone HCl 50 MG Tab PO SCH (21:00)
[2024-12-17] MEDS ORDERED: Famotidine 20 MG Tab PO SCH (21:00)
[2024-12-18] MEDS ORDERED: FLUoxetine HCl 10 MG Cap PO SCH (09:00)
== END 2024-12-18 17:30 | disposition home or self-care (01) ==
LOC: ER 16:04 → EOR 16:05
PROVIDERS: ADMIT Emergency Medicine
DX: F25.0 Schizoaffective disorder, bipolar type (principal); Z76.0 Encounter for issue of repeat prescription; R45.851 Suicidal ideations; E03.9 Hypothyroidism, unspecified; K21.9 Gastro-esophageal reflux disease without esophagitis; E11.9 Type 2 diabetes mellitus without complications; E78.5 Hyperlipidemia, unspecified; F17.210 Nicotine dependence, cigarettes, uncomplicated; R11.2 Nausea with vomiting, unspecified; E86.0 Dehydration; Z88.8 Allergy status to other drugs, medicaments and biological substances; Z79.899 Other long term (current) drug therapy
CPT/HCPCS: 0241U; 80053; 80320; 81025; 83605; 83690; 85025; 96361; 96374; 99284-25; 99285; A9270; G0378; G0480; J2405; J7030; J7120

== ENCOUNTER 2025-03-30 06:03 | Observation (INO) | payer MEDICARE, OTHER ==
[~2025-03-30] VITALS: Ht 175.3 cm; Wt 88.0 kg
[~2025-03-30 06:03] MED LIST changes: +BUPRENORPHINE HC2 MG PO; -BUSP10 PO
[2025-03-30 08:07] LABS: Source, Urine Clean Catch
[2025-03-30 08:14] LABS: Appearance, Urine Cloudy (Clear); Bilirubin, Urine Neg (Neg); Blood, Urine Neg (Neg); Color, Urine Yellow (P-Yellow); Glucose Qualitative, Urine Neg (Neg); Ketones, Urine Neg (Neg); Leukocyte Esterase, Urine Neg (Neg); Nitrite, Urine Neg (Neg); Protein, Urine 1+ (Neg); Urobilinogen, Urine 1+ (Normal)
[2025-03-30 08:17] LABS: BASOPHILS ABSOLUTE AUTO 0.04 K/mm3 (0.00-0.23); BASOPHILS PERCENT AUTO 1 % (0-2); EOSINOPHILS PERCENT AUTO 2 % (0-6); Hematocrit 42.3 % (33.0-51.0); Hemoglobin 14.3 g/dL (11.5-16.0); IMMATURE GRAN ABSOLUTE AUTO 0.01 K/mm3 (0.00-0.10); IMMATURE GRAN PERCENT AUTO 0 % (0-1); LYMPHOCYTES ABSOLUTE AUTO 1.42 K/mm3 (0.84-5.20); LYMPHOCYTES PERCENT AUTO 22 % (21-46); MONOCYTES ABSOLUTE AUTO 0.41 K/mm3 (0.16-1.47); MONOCYTES PERCENT AUTO 6 % (4-13); Mean Corpuscular HGB 31.5 pg (26.0-34.0); Mean Corpuscular HGB Conc 33.8 g/dL (31.5-36.5); Mean Corpuscular Volume 93 fL (80-100); Mean Platelet Volume 9.7 fL (9.1-12.4); NEUTROPHILS ABSOLUTE AUTO 4.46 K/mm3 (1.96-9.15); NEUTROPHILS PERCENT AUTO 69 % (41-73); Platelet Count 365 K/mm3 (150-400); RDW Coefficient Variation 12.6 % (11.7-14.2); RDW Standard Deviation 42.8 fL (35.1-46.3); Red Blood Cell Count 4.54 M/mm3 (3.80-5.20); White Blood Cell Count 6.44 K/mm3 (4.00-11.30)
[2025-03-30 08:23] LABS: Amorphous Mod (0-Heavy); Bacteria Few /hpf; Calcium Oxalate Crystals Few /hpf; Red Blood Cells, Urine 0-2 /hpf (0-2); Squamous Epithelial Cells Few /hpf (Few); White Blood Cells, Urine 0-2 /hpf (0-5)
[2025-03-30 08:29] LABS: U Amphetamine Screen Not Detected; U Barbituate Screen Not Detected; U Benzodiazapine Screen DETECTED; U Buprenorphine Screen DETECTED; U Cannabinoids Screen Not Detected; U Cocaine Screen Not Detected; U Methadone Screen Not Detected; U Methamphetamine Screen DETECTED; U Opiates Screen Not Detected; U Oxycodone Screen Not Detected; U Phencyclidine Screen Not Detected
[2025-03-30 08:31] LABS: Ethanol (Alcohol), Blood, Med <3 mg/dL; Salicylate 2.2 mg/dL (2.8-20.0)
[2025-03-30 08:32] LABS: Acetaminophen, Random <2.0 ug/mL (10.0-30.0); Alanine Aminotransfer (ALT/SGP 31 U/L (12-78); Albumin, Blood 4.1 g/dL (3.4-5.0); Albumin/Globulin Ratio 1.3 (0.8-1.8); Alk Phos 79 U/L (50-136); Anion Gap 7 mmol/L (3-11); Aspartate Aminotrans (AST/SGOT 19 U/L (12-37); Bilirubin, Total 0.4 mg/dL (0.1-1.0); Blood Urea Nitrogen 12 mg/dL (8-24); Bun/Creatinine Ratio 18.6 (12.0-20.0); CO2, Blood 27 mmol/L (21-32); Calcium, Blood 8.8 mg/dL (8.5-10.1); Chloride, Blood 109 mmol/L (98-108); Creatinine, Blood 0.64 mg/dL (0.40-1.00); Globulin, Blood 3.1 g/dL (2.2-4.0); Glomerular Filtration Rate 119 (60-); Glucose, Blood 109 mg/dL (70-99); Potassium, Blood 3.9 mmol/L (3.5-5.5); Sodium, Blood 139 mmol/L (136-145); Total Protein, Blood 7.2 g/dL (6.4-8.2)
[2025-03-30] MEDS ORDERED: BUPRENORPHINE HC2 MG SL (17:40)
[2025-03-30] MEDS ORDERED: Famotidine 20 MG Tab PO SCH (21:00)
[2025-03-30] MEDS ORDERED: TraZODone HCl 50 MG Tab PO SCH (21:00)
[2025-03-30] MEDS ORDERED: buprenorphine HCL 2 MG TAB.SUBL SL SCH (21:00)
[2025-03-30] MEDS ORDERED: BusPIRone HCl 5 MG Tab PO SCH (21:00)
[2025-03-31] MEDS ORDERED: FLUoxetine HCL 20 MG CAP PO SCH (09:00)
[2025-03-31] MEDS ORDERED: Nicotine Polacrilex 2 MG Gum PO PRN (11:10)
[2025-03-31] MEDS ORDERED: OLAN10A SL (14:30)
[2025-03-31] MEDS ORDERED: ZIPR80 PO (14:31)
[2025-03-31] MEDS ORDERED: INVEGA SUS234 MG/1.1 IM (14:42)
[2025-03-31] MEDS ORDERED: NALOXONE H0.4 MG/1 M (14:43)
== END 2025-03-31 13:13 | disposition other institution (70) ==
LOC: ER 06:03 → EOR 08:07
PROVIDERS: ADMIT Student in an Organized Health Care Education/Training Program
DX: F25.0 Schizoaffective disorder, bipolar type (principal); F15.129 Other stimulant abuse with intoxication, unspecified; R45.851 Suicidal ideations; F17.210 Nicotine dependence, cigarettes, uncomplicated; K21.9 Gastro-esophageal reflux disease without esophagitis; E03.9 Hypothyroidism, unspecified; E11.9 Type 2 diabetes mellitus without complications; E78.5 Hyperlipidemia, unspecified; Z79.899 Other long term (current) drug therapy; Z88.8 Allergy status to other drugs, medicaments and biological substances; Z90.49 Acquired absence of other specified parts of digestive tract
CPT/HCPCS: 80053; 80320; 81001; 81025; 85025; 93005; 93010; 99285-25; A9270; G0378; G0480

== ENCOUNTER 2025-03-31 10:35 | Inpatient (IN) | payer MEDICARE, OTHER ==
[~2025-03-31] VITALS: Ht 175.3 cm; Wt 85.0 kg
[~2025-03-31 10:35] MED LIST changes: +BUPRENORPHINE HC2 MG SL
[2025-03-31] MEDS ORDERED: Ondansetron 4 MG SoluTab MM PRN (12:55)
[2025-03-31] MEDS ORDERED: Polyethylene Glycol 3350 17 gm PO PRN (12:55)
[2025-03-31] MEDS ORDERED: Aluminum Hydroxide 320MG/5ML 473 ML PO PRN (13:00)
[2025-03-31 13:21] VITALS: BP 93/78
[2025-03-31 13:47] VITALS: BP 93/78
[2025-03-31] MEDS ORDERED: OLAN10A SL (14:30)
[2025-03-31] MEDS ORDERED: ZIPR80 PO (14:31)
[2025-03-31] MEDS ORDERED: INVEGA SUS234 MG/1.1 IM (14:42)
[2025-03-31] MEDS ORDERED: NALOXONE H0.4 MG/1 M (14:43)
--- NOTE | 2025-03-31 15:18 | NUR ---
ADMIT NOTE: PT TO UNIT FROM [facility] ER. PT STATES "I HAVE BEEN HAVING THOUGHTS OF SUICIDE FOR THE LAST FEW DAYS, THEY COME AND GO". STATES, "I WOULD OD ON PILLS". SHE CURRENTLY DENIES ANY SI, HI OR AVH. SHE DENIES INTENTION ON ACTING ON HER THOUGHTS AND STATES THAT THEY ARE CONTROLABLE AT THIS TIME. PT ORIENTED TO UNIT AND RULES. CALL PLACED TO [facility]T FOR CURRENT MED LIST. SPOKE WITH THE WIND TURBINE DESIGN ENGINEER WHO STATED THAT PT HAS NOT HAD INVEGA SINCE BEING DISCHARGED FROM PREVIOUS ADMIT TO [facility], SHE REFUSED THE MEDICATION FROM THEM. PT STATES THAT IT DIDN'T HELP HER SO SHE DIDN'T GET IT.
--- NOTE | 2025-03-31 16:47 | NUR ---
SHIFT SUMMARY: PT ALERT, ORIENTED AND COOPERATIVE WITH CARE. DENIES SI, HI AND AVH. PT NEW TO UNIT. CONSULT CALLED TO HOSPITALIST R/T SKIN AND VAGINAL C/O. PT WAS PRESENT FOR AFTERNOON GROUP AND WAS PROVIDED WITH AFTERNOON SNACK.
[2025-03-31 19:37] VITALS: BP 102/69
[2025-03-31] MEDS ORDERED: Buprenorphine HCL/Naloxone HCL 8MG-2MG Tab SL SCH ×2 (21:00)
[2025-03-31] MEDS ORDERED: Miconazole Nitrate 2% Talc Free PWD 71GM TOP SCH (21:00)
--- NOTE | 2025-04-01 05:09 | NUR ---
SHIFT SUMMARY: PT A/O X4. DENIES SI, HI, AND AVH. STATES SHE IS :LITTLE BIT "DEPRESSED". PT Z HAS STAYED IN HER ROOM . DID NOT GO FOR SNACK, BUT ASKED FOR SNACKED ABOUT AN HOUR LATER. SNACK GIVVEN WITH INSTRUCTIONS THAT SHE NEEDS TO COME OUT WHEN SNACK IS OFFERED AND THIS WILL NOT BE A HABIT OF GETTING SNACKS AT A LATER TIME. SHE SAID "OK".. PT HAS BEEN HERE MULTIPLE TIMES AND KNOWS THE RULES, BUT CONTINUES TO BE ON THE LATE SIDE WHEN WANTS SOMETHING.
[2025-04-01 08:33] LABS: CHOL/HDL RATIO 2.9; Cholesterol 150 mg/dL (50-200); HDL Cholesterol 52 mg/dL (>39); LDL/HDL RATIO 1.5; Low Density Lipoprotein Chol 79 mg/dL (0-110); Triglycerides 94 mg/dL (30-140); Very Low Density Lipoprot Chol 18 mg/dL (6-28)
[2025-04-01 08:35] VITALS: BP 102/67
--- NOTE | 2025-04-01 08:42 | NUR ---
SHIFT ASSESSMENT: PT WAS IN HER ROOM AT THE TIME OF ASSESSMENT, SHE DENIED SI, HI AND AVH. PT ENDORSED ANXIETY 7/10w AND HIP PAIN 6/10w. PT DESCRIBED HER MOOD , "I'M TIRED AND LISSY DEPRESSED." PT TOOK A SHOWER AND WENT TO BREAKFAST. SHE JUST GAVE A UA.
[2025-04-01] MEDS ORDERED: Multivitamins 1 Tab PO SCH (09:00)
[2025-04-01 13:27] LABS: Chlamydia Trachomatis Urine NOT DETECTED (NOT DETECT); Neisseria Gonorrhoea Urine NOT DETECTED (NOT DETECT)
--- NOTE | 2025-04-01 18:08 | NUR ---
PT HAS ATTENDED GROUPS AND HAS BEEN PLEASANT AND COOPERATIVE. PT WAS GIVEN VISTERIL 50MG FOR MASS SCORE OF 3. IT WAS EFFECTIVE. SHE IS PRESENTLY OUT IN THE COURTYARD.
[2025-04-01 19:23] VITALS: BP 98/69
--- NOTE | 2025-04-02 04:19 | NUR ---
SHIFT SUMMARY: PATIENT WAS IN THE DINING ROOM FINISHING DINNER AT THE BEGINNING OF THE SHIFT. SHE THEN CAME INTO THE MILIEU AND ASKED FOR HER EVENING MEDICATIONS " SOON POSSIBLE" BECAUSE SHE WANTED TO GO TO BED. SHE WAS TOLD EARLIEST MEDICATION TIME, AND REMINDED THAT SNACK WILL BE SERVED ONLY AT SNACK TIME. SHE WAS NOT SUPER COMPLIANT WITH FUNDRAISING DIRECTOR BUT DID DENY SUICIDAL IDEATION, THOUGHTS OF SELF HARMING AND A/V HALLUCINATIONS. SHE PARTICIPATED IN EVENING SNACK TIME AND WAS COMPLIANT WITH MEDICATION ADMINISTRATION, ALTHOUGH SHE DID DIG THROUGH THE PILLS WITH HER FINGERS AND WANTED TO MAKE SURE SHE HAD HER SUBOXONE. SHE WAS GIVEN MEDICATION EDUCATION REGARDING ALL OF HER MEDICINE, BUT LOST INTEREST ONCE SHE KNEW WHERE HER SUBOXONE WAS LOCATED. SHE TOOK PILLS IN FRONT OF RN AND MOUTH CHECK DONE. SHE THEN WENT TO BED AND WAS NOTED TO BE RESTING QUIETLY WITH EYES CLOSED AND RESPIRATIONS CONFIRMED FOR THE REMAINDER OF THE SHIFT. CONTINUING TO MONITOR FOR SAFETY WITH Q15 MINUTE CHECKS.
[2025-04-02 08:38] VITALS: BP 128/108
[2025-04-02 08:39] VITALS: BP 128/108
--- NOTE | 2025-04-02 17:01 | NUR ---
SHIFT SUMMARY PT A/O X4; SHE ENDORSES DEPRESSED FEELINGS BUT DENIES SI. PT ALSO DENIES ANY HALLUCINATIONS. HER AFFECT IS BLUNTED AND PT ISOLATES OFTEN IN HER ROOM. SHE GETS UP FOR MEALS BUT DID NOT ATTEND GROUP. SHE SHOWERED THIS SHIFT AND AND ANTI FUNGAL POWDER APPLIED TO PINK RASH BENEATH BREASTS. PT DECLINED RISPERIDAL THIS AM BECAUSE SHE WOULD RATHER TAKE GEODON. ENCOURAGED PT TO DISCUSS THIS WITH PSYCHIATRIST. PT THEN ASKED FOR RISPERIDAL THIS AFTERNOON, AND WAS EDUCATED THAT SHE IS TO GET A DOSE THIS EVENING.
[2025-04-02 19:44] VITALS: BP 93/57
--- NOTE | 2025-04-03 04:16 | NUR ---
SHIFT SUMMARY: PATIENT WAS AWAKE AND IN THE DINING ROOM EATING DINNER AT THE BEGINNING OF THE SHIFT. SHE THEN CAME TO THE NURSING STATION AND ASKED IF SHE COULD HAVE HER MEDICATIONS RIGHT AT 1999. SHE STATED THAT SHE HAD "A GOOD DAY" AND "I FEEL BETTER, BUT FOR SOME REASON I CAN'T STOP SLEEPING". SHE STATED THAT SHE HAD "SLEPT ALL DAY" BUT "I STILL WANT TO SLEEP". SHE WAS SOMEWHAT PLEASANT AND WAS ABLE TO ANSWER SPUDDER QUESTIONS IN A LOGICAL AND LINEAR MANNER. SHE DENIED SUICIDAL IDEATION, THOUGHTS OF SELF HARMING AND A/V HALLUCINATIONS. SHE HAD HER MEDICATIONS AT 1999, AND WENT TO LIE DOWN, BUT REMAINED AWAKE AND GOT UP FOR SNACK TIME AT 2029. AFTER SNACK, SHE WENT BACK TO BED AND WAS NOTED TO BE RESTING QUIETLY WITH EYES CLOSED AND RESPIRATIONS CONFIRMED FOR THE REMAINDER OF THE SHIFT. CONTINUING TO MONITOR FOR SAFETY WITH Q15 MINUTE CHECKS.
[2025-04-03 08:38] VITALS: BP 107/66
--- NOTE | 2025-04-03 09:07 | NUR ---
PATIENT REPORTS MOOD IS ALRIGHT. SHE HAD REQUESTED TO GET BACK ON GEODON, RATHER THAN TAKE RISPERIDONE. SHE HAS BEEN ON GEODON FOR ABOUT 8 WEEKS, AND NOW SHE IS HERE BECAUSE OF MH EXACERBATION. SHE STATES THAT SHE HAD BEEN ON CLOZARIL BUT HER WBC BECAME TO LOW AND SHE HAD TO STOP. THE CLOZARIL WAS EXTREAMLY EFFECTIVE, SHE STATES "I LOVED IT". AFTER THAT HER ADAPT PROVIDER STARTED THORAZINE, BUT THAT MADE HER DIZZY AND SO THIS WAS DISCONTINUED. THEN, GEODON STARTED. GEODON HAS BEEN PRESCRIBED ABOUT 8 WEEKS PER PATIENT REPORT. THE PATIENT AND I DISCUSSED THAT MAYBE THE RISPERIDONE WILL WORK BETTER THE GEODON LEAD TO AN ADMISSION HERE. SHE IS OPEN TO THIS AND WOULD LIKE TO DISCUSS WITH THE PROVIDER. PATIENT DENIES SI, BUT THEN STATES SHE THINKS ABOUT MAYBE SHE WOULD BE BETTER OFF IF SHE WERE . SHE DENIES HI, ALL HALLUCINATION AND STATES SHE DOESN'T THINK THAT SHE IS SCHIZOAFFECTIVE BECASUE SHE NEVER HALLUCINATES. SHE THINKS HER SYMPTOMS ARE ALL RELATED TO BIPOLAR. PATIENT REPORTS A HEADACHE AND LOW BACK PAIN. IBU IS HER CHOICE TO ALLEVIATE IF DISTRACTION DOES NOT WORK. PATIENT IS PARTICIPATING, INTERACTING WITH OTHERS AND KIND TO STAFF.
[2025-04-03 12:38] LABS: HIV 1,2 COMBO ANTIGEN/ANTIBODY Negative (Negative)
[2025-04-03 13:38] LABS: HEPATITIS A ANTIBODY, IGM Negative (Negative); HEPATITIS C AB CIA INTERP Low Pos (Negative); HEPATITIS C ANTIBODY CIA INDEX 5.26 IV
--- NOTE | 2025-04-03 16:27 | NUR ---
SHIFT SUMMARY: PLEASE ALSO SEE THE NOTE FROM THIS MORNING WITH FURTHER INFO. PATIENT HAS BEEN ALERT AND ORIENTATED, COOPERATIVE THIS SHIFT. SHE TAKES MEDICATIONS WILLINIGLY. SHE DENIES SUICIDAL IDEATION WITH A PLAN OR INTENT, DENIES HALLUCINATIONS. SHE STATES SHE FEELS BETTER. SHE WAS ABLE TO TALK TO THE PROVIDER THIS SHIFT ABOUT HER MEDICATIONS AND SEEMS TO HAVE A BETTER UNDERSTANDING OF WHY RISPERIDONE MAY BE A BETTER ANTIPSYCHOTIC FOR HER. PATIENT HAS BEEN INTERACTIVE WITH PEERS, STAFF AND ACTIVELY PARTICIPATING TODAY. SHE IS CURRENTLY RESTING IN HER ROOM, AFTER JUST HAVING TAKEN A PRN FOR ANXIETY.
[2025-04-03 19:17] VITALS: BP 104/75
--- NOTE | 2025-04-04 04:24 | NUR ---
SHIFT SUMMARY AT START OF SHIFT, PT WAS UP IN THE MILIEU, GAVE HER NICORETTE GUM. SHORTLY THEN SHE ASKED ABOUT HER NIGHT MEDS. INFORMED HER THAT THEY COULD BE GIVEN AFTER 1999. THAT OCCURED AT THE RIGHT, FINGERED THROUGH HER MEDS PICKING THROUGH THEM BUT EVENTUALLY TOOK THEM ALL. SHE ENDORSED VERY FAINT FLEETING THOUGHS OF SI HOWEVER SHE STATES SHE FEELS SHE CAN CONTROL THE THOUGHTS. PT DID ENGAGE IN SNACK AND THEN WENT TO BED, SHE HAS SLEPT ALL NIGHT WITHOUT ISSUE, SHE RECEIVED Q15 MIN VISUAL SAFETY CHECKS THROUGHOUT SHIFT.
--- NOTE | 2025-04-04 08:49 | NUR ---
PT ALERT, ORIENTED AND COOPERATIVE WITH CARE. DENIES SI, HI AND AVH THIS AM. PT AT THE NURSES STATION AT 0700 REQUESTING HER AM MEDICATIONS. EXPLAINED THAT MEDICATIONS CAN BE GIVEN AT 0800. PT RETURED TO THE NURSES STATION AND STATED "IT'S 7:58, CAN I HAVE MY MEDS NOW". PT MEDICATED PER ORDERS WITH AM MEDS. PT STATED THAT SHE IS FEELING ANXIOUS THIS AM, STATES THAT SHE IS WORRIED ABOUT HER MOM AND BROTHER. PT VAGUE WHEN ASKED WHY, STATED "I THINK SOMETHING HAPPENED TO THEM" BUT IS NOT ABLE TO EXPLAIN WHY. PT STATES THAT SHE DIDN'T SLEEP WELL LAST NIGHT.
--- NOTE | 2025-04-04 17:08 | NUR ---
SHIFT SUMMARY: PT WAS PRESENT FOR MEALS, DECLINED TO ATTEND GROUPS. PT COMPLIANT WITH MEDIATIONS. HOSPITALIST HAS BEEN TO BEDSIDE TO DISUSS PLAN OF CARE. PT WAS OFFERED THE PHONE DURING PHONE TIME TO CALL HER FAMILY SHE HAD PREVOUSLY STATED SHE WAS WORRIED ABOUT THEM. PT DECLINED THE PHONE AND CONTINUED TO REST IN HER ROOM ON HER BED. PT REQUESTED MEDICATION FOR ANXIETY AND WAS MEDICATED PER EMAR.
[2025-04-04 20:25] VITALS: BP 91/66
--- NOTE | 2025-04-04 23:25 | NUR ---
MID SHIFT SUMMARY FOR REPORT OFF: PATIENT HAS HAD AN UNEVENTFUL EVENING. DID NOT ATTEND SNACK BUT DID GO IN AND GET FRESH WATER. STATES SHE IS LOOKING FORWARD TO LEAVING TOMORROW BUT THAT SHE DOES NOT KNOW WHERE SHE WILL GO. PATIENT SAYS SHE WAS HOMELESS PRIOR TO ADMISSION AND WILL PROBABLY RETURN TO SAME. STATES SHE WOULD JUST LIKE TO SLEEP TONIGHT AND NOT GO TO TV ROOM, ETC.
--- NOTE | 2025-04-05 | NUR ---
Assumed care from OSVALDO Barber at 2345. Patient is currently sleeping. Will continue close monitoring every 15 minutes for comfort and safety.
--- NOTE | 2025-04-05 05:49 | NUR ---
END OF SHIFT SUMMARY: Patient has been sleeping since this RN took over care at 0045. Will continue close observation every 15 minutes for safety and comfort.
--- NOTE | 2025-04-05 06:54 | NUR ---
IMPORTANT DISCHARGE INFORMATION PATIENT TO BE DISCHARGED TODAY. SHE WILL TAKE A TAXI BACK TO THE [facility] VIA HER REQUEST. FOLLOW UP APPOINTMENTS: NAM BAL PCP ON 04/06/25 AT 10:15AM. FOLLOW UP WITH [facility]: SHIRLEY JOLLEY PMHNP ON 04/18/25 AT 1:45PM FOLLOW UP SUBSTANCE ABUCE WITH [facility] ON 04/22/25 AT 8:30AM
[2025-04-05 07:15] VITALS: BP 116/73
[2025-04-05] MEDS ORDERED: BUPRENORPHIN-N1 EAC1 SL (07:46)
[2025-04-05] MEDS ORDERED: FAMO20 PO (07:47)
[2025-04-05] MEDS ORDERED: Prozac20 MG PO (07:48)
[2025-04-05] MEDS ORDERED: ONDA4ODT MM (07:49)
[2025-04-05] MEDS ORDERED: BUSP10 PO (07:52)
[2025-04-05] MEDS ORDERED: HYDPAM50 PO (07:53)
[2025-04-05] MEDS ORDERED: Lotrimin AF113 GM TOP (07:56)
[2025-04-05] MEDS ORDERED: NICO2 PO (07:57)
[2025-04-05] MEDS ORDERED: MULVITA PO (07:57)
[2025-04-05] MEDS ORDERED: RISP.5 PO (07:58)
[2025-04-05 13:11] LABS: HCV QNT BY NAAT (IU/ML) Not Detected; HCV QNT BY NAAT (LOG IU/ML) Not Detected; HCV QNT BY NAAT INTERP Not Detected (Not Detected)
--- NOTE | 2025-04-05 13:19 | NUR ---
DISCHARGE PT A/O X4; DENIES SI, HI, HALLUCINATIONS. PT TREATED PER EMR FOR ANXIETY AND 1400 MEDICATIONS GIVEN TO PT PRIOR TO DC. NEW PATIENT MEDICATIONS FAXED TO [facility]. WENT OVER DC INSTRUCTIONS WITH PT AND SHE VERBALIZED UNDERSTANDING. PT NOTICED THAT RECENTLY PRESCRIBED ABX WERE MISSING FROM DISCHARGE MED LIST. THIS RN CONTACTED PROVIDER TO SEE IF ABX NEED TO BE CONTINUED. RN TO CONTACT PT WITH ANSWER FROM DOCTOR. PT'S PHONE NUMBER IS [phone]. BELONGINGS RETURNED TO PT AND SHE LEFT THE UNIT VIA TAXI AT 1313.
--- NOTE | 2025-04-05 14:58 | NUR ---
[facility] TO [facility] UNDER HOSPITALIST. CALLED PT'S CELL PHONE. NO ANSWER AT THIS TIME. VOICEMAIL LEFT ON PT'S PHONE.
[2025-04-10] MEDS ORDERED: AMOCLA875 PO (12:58)
[2025-04-10] MEDS ORDERED: DOXY100 PO (12:58)
== END 2025-04-05 13:13 | disposition home or self-care (01) | DRG 885 ==
LOC: BHU 10:35
PROVIDERS: Internal Medicine; ADMIT Student in an Organized Health Care Education/Training Program
DX: F34.9 Persistent mood [affective] disorder, unspecified (principal); Z59.00 Homelessness unspecified; F25.0 Schizoaffective disorder, bipolar type; E11.9 Type 2 diabetes mellitus without complications; E03.9 Hypothyroidism, unspecified; K21.9 Gastro-esophageal reflux disease without esophagitis; E78.5 Hyperlipidemia, unspecified; F41.9 Anxiety disorder, unspecified; B37.2 Candidiasis of skin and nail; F15.10 Other stimulant abuse, uncomplicated; F11.11 Opioid abuse, in remission; N89.8 Other specified noninflammatory disorders of vagina; Z91.148 Patient's other noncompliance with medication regimen for other reason; F17.210 Nicotine dependence, cigarettes, uncomplicated; Z90.49 Acquired absence of other specified parts of digestive tract; Z98.890 Other specified postprocedural states; Z56.0 Unemployment, unspecified; Z79.899 Other long term (current) drug therapy; Z88.8 Allergy status to other drugs, medicaments and biological substances
CPT/HCPCS: 36415; 80061; 80074; 83036; 86592; 87389; 87491; 87522; 87591; A9270

== ENCOUNTER 2025-04-10 14:13 | Observation (INO) | payer MEDICARE, OTHER ==
[~2025-04-10] VITALS: Ht 175.3 cm; Wt 83.9 kg
[~2025-04-10 14:13] MED LIST changes: +AMOCLA875 PO; +BUSP10 PO; +DOXY100 PO; +HYDPAM50 PO; +INVEGA SUS234 MG/1.1 IM; +Lotrimin AF113 GM TOP; +MULVITA PO; +NALOXONE H0.4 MG/1 M; +OLAN10A SL; +Prozac20 MG PO; +RISP.5 PO; +ZIPR80 PO
[2025-04-10 17:08] LABS: Source, Urine Clean Catch
[2025-04-10 17:17] LABS: Ethanol (Alcohol), Blood, Med <3 mg/dL; Salicylate <1.7 mg/dL (2.8-20.0)
[2025-04-10 17:21] LABS: Bilirubin, Urine Neg (Neg); Color, Urine Yellow (P-Yellow); Glucose Qualitative, Urine Neg (Neg); Ketones, Urine 4+ (Neg); Leukocyte Esterase, Urine Neg (Neg); Protein, Urine 2+ (Neg); Specific Gravity, Urine 1.025 (1.003-1.022); Urobilinogen, Urine NORM (Normal)
[2025-04-10 17:24] LABS: Acetaminophen, Random <2.0 ug/mL (10.0-30.0)
[2025-04-10 17:29] LABS: Red Blood Cells, Urine 0-2 /hpf (0-2); White Blood Cells, Urine 0-2 /hpf (0-5)
[2025-04-10 17:42] LABS: U Amphetamine Screen DETECTED; U Barbituate Screen Not Detected; U Benzodiazapine Screen Not Detected; U Buprenorphine Screen DETECTED; U Cannabinoids Screen Not Detected; U Cocaine Screen Not Detected; U Methadone Screen Not Detected; U Methamphetamine Screen DETECTED; U Opiates Screen Not Detected; U Oxycodone Screen Not Detected; U Phencyclidine Screen Not Detected
[2025-04-11] MEDS ORDERED: Miconazole Nitrate 28 GM CREAM..G. TOP ONE (12:05)
[2025-04-11] MEDS ORDERED: Multivitamins 1 Tab PO ONE (12:10)
[2025-04-11] MEDS ORDERED: Buprenorphine HCL/Naloxone HCL 8MG-2MG Tab SL SCH (14:00)
== END 2025-04-11 13:53 | disposition other institution (70) ==
LOC: ER 14:13 → EOR 14:14
PROVIDERS: Student in an Organized Health Care Education/Training Program; ADMIT Emergency Medicine
DX: F20.9 Schizophrenia, unspecified (principal); J18.9 Pneumonia, unspecified organism; F15.90 Other stimulant use, unspecified, uncomplicated; R07.9 Chest pain, unspecified; R06.02 Shortness of breath; E03.9 Hypothyroidism, unspecified; K21.9 Gastro-esophageal reflux disease without esophagitis; E11.9 Type 2 diabetes mellitus without complications; E78.5 Hyperlipidemia, unspecified; F17.210 Nicotine dependence, cigarettes, uncomplicated; Z79.899 Other long term (current) drug therapy; Z88.8 Allergy status to other drugs, medicaments and biological substances; R06.00 Dyspnea, unspecified
CPT/HCPCS: 36415; 71046; 71260; 80053; 80320; 81001; 81025; 82947; 84484; 85025; 85379; 93005; 93010; 96374-59; 99284-25; 99285; 99285-25; A9270; G0378; G0480; J1200; J2919; J7030; Q9967

== ENCOUNTER 2025-04-11 11:08 | Inpatient (IN) | payer MEDICARE, OTHER ==
[~2025-04-11] VITALS: Ht 175.3 cm; Wt 83.2 kg
[2025-04-11 14:05] VITALS: BP 98/65
[2025-04-11 14:20] VITALS: BP 98/65
--- NOTE | 2025-04-11 17:24 | NUR ---
ADMISSION SUMMARY PT ADMITTED THIS SHIFT FROM ED. PER ED THE PATIENT HAD COME IN SEVERAL TIMES FOR DYSPNEA AND WAS DIAGNOSED WITH PNEUMONIA. THE PT DID NOT BOAT TESTER HER ABX AND CAME BACK C/O NOT FEELING WELL AND SI. PT REPORTS TO THIS RN THAT SHE IS CURRENTLY SUICIDAL AND THAT SHE TRIED TO COMMITT SUICIDE BY OVERDOSING ON HER SUBOXONE, BUT SHE DID NOT TAKE ENOUGH. PT REPORTS THAT SHE IS NOT DOING WELL MENTALLY AND IS HAVING A HARD TIME WITH POLICE. PT DENIES HALLUCINATIONS OR RECENT METH USE. PT APPEARS TO BE HAVING DELUSIONS THAT THE POLICE AND ROBBI ARE "HARASSING ME AND HURTING ME BY PUTTING ME IN A DEHYDRATION SUIT". PT DECLINED TO PARTICIPATE IN GROUP AFTER ARRIVING AND SAID THAT SHE WOULD RATHER REST. PT'S AFFECT IS IRRITABLE AND HER EYES ARE DARTING. PT CHANGED INTO UNIT BASED SCRUBS AND ABRASIONS NOTED TO BOTH FEET. PT ALSO REPORTS YEAST LIKE VAGINAL DISCHARGE. PT ORIENTED TO UNIT/ROOM. PT LAYING IN BED AFTER INTAKE INTERVIEW. SHE IS MONITORED Q15 FOR SAFETY AND WELLNESS.
[2025-04-11] MEDS ORDERED: DiphenhydrAMINE HCl 50 MG/ML 1ML Vial IM PRN (17:50)
[2025-04-11] MEDS ORDERED: Ondansetron 4 MG SoluTab MM PRN (17:55)
[2025-04-11] MEDS ORDERED: Polyethylene Glycol 3350 17 gm PO PRN (17:55)
[2025-04-11] MEDS ORDERED: Aluminum Hydroxide 320MG/5ML 473 ML PO PRN (17:55)
[2025-04-11 20:40] VITALS: BP 99/62
[2025-04-11] MEDS ORDERED: Buprenorphine HCL/Naloxone HCL 8MG-2MG Tab SL SCH (21:00)
--- NOTE | 2025-04-12 04:14 | NUR ---
SHIFT SUMMARY Patient is alert and oriented times 3-4. Flat affect and minimally communicative with staff and peers. At the start of the shift, she approached the desk and asked for her bedtime medications so she could go to bed. She did allow staaff to wake her for snack time, then back to sleep. Woke early this morning asking for a spit cup since people were coming into her room and spitting in her mouth. patient again went back to sleep after that. Denied SI,HI and AVTH to this RN during very brief assessment last night. Will continue close monitoring every 15 minutes for comfort and safety.
[2025-04-12] MEDS ORDERED: Multivitamins 1 Tab PO SCH (09:00)
[2025-04-12 09:01] VITALS: BP 104/67
--- NOTE | 2025-04-12 18:01 | NUR ---
SHIFT SUMMARY PT UP FOR MEALS AND SNACKS. SHE SLEPT THROUGH GROUPS IN THAT AM BUT AFTER BEING ENCOURAGED BY KARL RILEY SHE ATTENDED SOME IN THE AFTERNOON. SHE REQUESTED HER MEDS AN HOUR PRIOR TO ADMINISTRATION TIMES. IN THE AFTERNOON SHE WOKE FROM A NAP AND CAME TO THE RN STATION WITH C/O ANXIETY, BUT REFUSED HYDROXYZINE AND SAID IT DOES NOT WORK. PT WAS GIVEN NICOTINE GUM AT THAT TIME. SHE DENIES SI/HI THIS SHIFT. SAFETY CHECKS WERE PERFORMED Q15 MIN.
[2025-04-12 20:06] VITALS: BP 107/68
--- NOTE | 2025-04-13 04:22 | NUR ---
Patient is alert and oriented times four. She keeps to herself, has a very flat affect, and seems at night to only come out of her room to ask for medications and have a snack. She has slept well so far tonight. Will continue monitoring every 15 minutes for comfort and safety.
[2025-04-13 09:23] VITALS: BP 80/51
--- NOTE | 2025-04-13 13:06 | NUR ---
NURSE NOTE PT C/O FEELING "REALLY DEPRESSED" THIS MORNING. SHE IS FIDGETING AND HAS SLIGHT TREMORS IN HER HANDS UPON WAKING. PT WAS MEDICATED WITH PRN ZYPREXA FOR ANXIETY. SHE HAS PARTICIPATED IN MOST GROUPS AND MEALS. SHE DENIES SI/HI/AVH. NOT OTHER ACUTE ACTIVITIES.
--- NOTE | 2025-04-13 17:43 | NUR ---
SHIFT SUMMARY ASSUMED CARE OF PT AT 1400. PT HAS BEEN IN BED ALL AFTERNOON UNTIL THIS MOMENT AND SHE IS UP ASKING FOR A ZYPREXA AND STATES SHE IS SUPER STRESSED AND HAS A LOT GOING ON. SHE DID NOT ATTEND GROUP AND STATED SHE DIDN'T FEEL GOOD AND WOULDN'T GO. SHE HAS HAD CONTINUED Q15 MIN SAFETY CHECKS.
[2025-04-13 19:09] VITALS: BP 100/69
--- NOTE | 2025-04-14 00:27 | NUR ---
Patient is alert and oriented times four. She stayed in bed until 1999 when she could get her evening medications, then back to bed after snack time. Denies SI,HI AVTH at the time of evening assessment . Patient has a very flat affect and is very quiet while in the milieu. She will just sit by the nurses station until her needs are met. Will continue close monitoring every 15 minutes for safety and comfort
--- NOTE | 2025-04-14 04:08 | NUR ---
END OF SHIFT UPDATE ASSUMED CARE OF PT AT 0045. NO ACUTE CHANGES. PT HAS REMAINED IN BED THROUGHOUT THE NIGHT. Q15 MINUTE CHECKS TO CONTINUE PER PT SAFETY.
[2025-04-14 08:56] VITALS: BP 103/71
--- NOTE | 2025-04-14 11:54 | NUR ---
IMPORTANT DISCHARGE INFORMATION PATIENT TO BE DISCHARGED ON 04/15/25 BY 2PM. KYLAH STANTON NEEDS TO BE CALLED AND SHE MAY PAY FOR THIS HERSELF OR, SHE CAN BE OFFERED A BUS PASS. SHE WOULD LIKE TO GO TO [facility] = ADDRESS: [phone]. PLEASE GIVE HER A BLANKET AT DISCHARGE SHE PLANS TO SLEEP OUT DOORS. SHE CURRENTLY IS REFUSING ASSISTED. PCP FOLLOW UP INCLUDING [facility]: N[facility] BAL AT [facility] ON 04/27/25 AT 10:00AM. [facility] FOLLOW UP WITH [facility] ON 04/18/25 AT 1:45PM WITH LAKSHMI JOLLEY PMHNP. [facility]: FAX #
--- NOTE | 2025-04-14 14:41 | NUR ---
SHIFT ASSESSMENT: PT SI, HI, AVH, ANXIETY AND PHYSICAL PAIN. HER AFFECT WAS FLAT AND HER MOOD WAS DISCRIBED "OK." PT DECLINED TO GO TO GROUPS ALL MORNING AND THEN WHEN INFORMED OF POSSIBLE DISCHARGE SHE WENT TO GROUP. SHE LATER CLAIMED SI WITH A PLAN OF OD ON PILLS. PT REPORTED HAVING DIARRHEA SINCE YESTERDAY AND WAS GIVEN IMODIUM 4MG. SHE IS PRESENTLY IN GROUP.
--- NOTE | 2025-04-14 17:11 | NUR ---
PT RATED HER ANXIETY 7/10w AND ASKED FOR ZYPREXA 10MG. SHE REPORTS THAT IT WAS EFFECTIVE. SHE IS PRESENTLY LAYING ON HER BED.
[2025-04-14 19:19] VITALS: BP 93/63
--- NOTE | 2025-04-15 04:31 | NUR ---
SHIFT SUMMARY: PATIENT WAS IN THE DINING AREA HAVING DINNER AT THE BEGINNING OF THE SHIFT. IMMEDIATELY AFTERWARD, SHE WENT TO BED AND WAS RESTING WITH EYES CLOSED. SHE WAS ABLE TO AWAKEN ENOUGH TO PARTICIPATE IN STOREROOM CLERK. SHE STATED, "I AM ALWAYS FEELING SUICIDAL, BUT I WON'T DO ANYTHING HERE ([facility]) BECAUSE I FEEL SAFE". SHE DENIED THOUGHTS OF SELF HARMING AND HALLUCINATIONS. SHE STATED THAT SHE WAS "TOO TIRED" FOR SNACK, BUT DID GET UP TO PARTICIPATE IN SNACK AND WRAP UP GROUP. SHE WAS COMPLIANT WITH EVENING MEDICATIONS. SHE WENT TO BED EARLY AND WAS NOTED TO BE RESTING QUIETLY WITH EYES CLOSED AND RESPIRATIONS CONFIRMED FOR THE REMAINDER OF THE SHIFT. CONTINUING TO MONITOR FOR SAFETY WITH Q15 MINUTE CHECKS.
[2025-04-15 08:46] VITALS: BP 107/79
--- NOTE | 2025-04-15 08:50 | NUR ---
SHIFT SUMMARY: PT ENDORSED FEELING "SUICIDAL AND SAD." SHE DENIED HI AND AVH. SHE REPORTED ANXIETY 7-8/10w AND LOW BACK PAIN, "A LITTLE." HER MOOD WAS DISCRIBED "SUCKS." PT ATTENDED BUT DECLINED TO PARTICIPATE IN GROUPS. PT SAT IN THE HALLWAY FOR A WHILE AND THEN REPORTED THAT HER SI WAS DIMINISHING.
--- NOTE | 2025-04-15 11:22 | NUR ---
PT REPORTED THAT SHE WANTS TO DISCHARGE AND THAT HER SUICIDAL THOUGHTS HAVE SUICIDAL THINKING HAS RESOLVED. PROVIDER NOTIFIED.
--- NOTE | 2025-04-15 11:46 | NUR ---
DISCHARGE SUMMARY: 11:40 PT WAS DISCHARGED FROM [facility] WITH ALL OF HER BELONGINGS AND HER DISCHARGE INSTRUCTIONS. SHE REPORTED UNDERSTANDING OF ALL DISCHARGE INSTRUCTIONS. PT WAS GIVEN [place] INFORMATION AND A BUS PASS. PT CONTINUED TO DENY SI.
== END 2025-04-15 11:51 | disposition home or self-care (01) | DRG 885 ==
LOC: BHU 11:08
PROVIDERS: ADMIT Orthopaedic Surgery
DX: F20.9 Schizophrenia, unspecified (principal); Z59.01 Sheltered homelessness; Z87.01 Personal history of pneumonia (recurrent); Z88.8 Allergy status to other drugs, medicaments and biological substances; F15.10 Other stimulant abuse, uncomplicated; Z79.899 Other long term (current) drug therapy
CPT/HCPCS: A9270

== ENCOUNTER 2025-04-17 21:27 | Emergency (ER) | payer MEDICARE, OTHER ==
[~2025-04-17] VITALS: Ht 175.3 cm; Wt 90.7 kg
[2025-04-17] MEDS ORDERED: Ketorolac Tromethamine 15mg Vial IV ONE (21:55)
[2025-04-17 22:29] LABS: BASOPHILS ABSOLUTE AUTO 0.04 K/mm3 (0.00-0.23); BASOPHILS PERCENT AUTO 1 % (0-2); EOSINOPHILS ABSOLUTE AUTO 0.44 K/mm3 (0.00-0.68); EOSINOPHILS PERCENT AUTO 6 % (0-6); Hematocrit 37.8 % (33.0-51.0); Hemoglobin 12.6 g/dL (11.5-16.0); IMMATURE GRAN ABSOLUTE AUTO 0.01 K/mm3 (0.00-0.10); IMMATURE GRAN PERCENT AUTO 0 % (0-1); LYMPHOCYTES ABSOLUTE AUTO 2.83 K/mm3 (0.84-5.20); LYMPHOCYTES PERCENT AUTO 38 % (21-46); MONOCYTES ABSOLUTE AUTO 0.73 K/mm3 (0.16-1.47); MONOCYTES PERCENT AUTO 10 % (4-13); Mean Corpuscular HGB Conc 33.3 g/dL (31.5-36.5); Mean Corpuscular Volume 94 fL (80-100); NEUTROPHILS ABSOLUTE AUTO 3.45 K/mm3 (1.96-9.15); NEUTROPHILS PERCENT AUTO 46 % (41-73); NRBC ABSOLUTE 0.00 K/mm3 (0.00-0.02); NRBC Auto 0.0 /100 WBC (0.0-0.2); Platelet Count 324 K/mm3 (150-400); RDW Coefficient Variation 13.0 % (11.7-14.2); RDW Standard Deviation 45.2 fL (35.1-46.3)
[2025-04-17 22:50] LABS: Alanine Aminotransfer (ALT/SGP 30.0 U/L (12-78); Albumin, Blood 3.5 g/dL (3.4-5.0); Albumin/Globulin Ratio 1.3 (0.8-1.8); Anion Gap 7.0 mmol/L (3-11); Aspartate Aminotrans (AST/SGOT 19.0 U/L (12-37); Bilirubin, Total 0.7 mg/dL (0.1-1.0); Blood Urea Nitrogen 13.0 mg/dL (8-24); CO2, Blood 27.0 mmol/L (21-32); Calcium, Blood 8.7 mg/dL (8.5-10.1); Chloride, Blood 106.0 mmol/L (98-108); Creatinine, Blood 0.68 mg/dL (0.40-1.00); Globulin, Blood 2.7 g/dL (2.2-4.0); Glucose, Blood 100.0 mg/dL (70-99); Potassium, Blood 3.2 mmol/L (3.5-5.5); Sodium, Blood 137.0 mmol/L (136-145); Total Protein, Blood 6.2 g/dL (6.4-8.2)
[2025-04-18] MEDS ORDERED: Buprenorphine HCL/Naloxone HCL 8MG-2MG Tab SL ONE (01:20)
[2025-04-18 02:07] LABS: Source, Urine Clean Catch
[2025-04-18 02:19] LABS: Bilirubin, Urine Neg (Neg); Glucose Qualitative, Urine Neg (Neg); Ketones, Urine Neg (Neg); Leukocyte Esterase, Urine 1+ (Neg); Protein, Urine 2+ (Neg); Specific Gravity, Urine 1.015 (1.003-1.022); Urobilinogen, Urine NORM (Normal)
[2025-04-18 02:34] LABS: Color, Urine Yellow (P-Yellow); Red Blood Cells, Urine 0-2 /hpf (0-2); White Blood Cells, Urine 0-2 /hpf (0-5)
== END 2025-04-18 04:20 | disposition home or self-care (01) ==
LOC: ER 21:27
PROVIDERS: Student in an Organized Health Care Education/Training Program
DX: M54.50 Low back pain, unspecified (principal); E78.5 Hyperlipidemia, unspecified; E11.9 Type 2 diabetes mellitus without complications; K21.9 Gastro-esophageal reflux disease without esophagitis; E03.9 Hypothyroidism, unspecified; F17.210 Nicotine dependence, cigarettes, uncomplicated; Z79.899 Other long term (current) drug therapy; Z88.8 Allergy status to other drugs, medicaments and biological substances
CPT/HCPCS: 74177; 80053; 81001; 81025; 83690; 85025; 96374-59; 99284-25; A9270; J1885; Q9967

== ENCOUNTER 2025-04-18 09:52 | Emergency (ER) | payer MEDICARE, OTHER ==
[~2025-04-18] VITALS: Ht 175.3 cm; Wt 90.7 kg
[2025-04-18 10:38] LABS: BASOPHILS ABSOLUTE AUTO 0.03 K/mm3 (0.00-0.23); BASOPHILS PERCENT AUTO 1 % (0-2); EOSINOPHILS ABSOLUTE AUTO 0.34 K/mm3 (0.00-0.68); EOSINOPHILS PERCENT AUTO 7 % (0-6); Hematocrit 39.6 % (33.0-51.0); Hemoglobin 13.6 g/dL (11.5-16.0); IMMATURE GRAN ABSOLUTE AUTO 0.01 K/mm3 (0.00-0.10); IMMATURE GRAN PERCENT AUTO 0 % (0-1); LYMPHOCYTES ABSOLUTE AUTO 1.85 K/mm3 (0.84-5.20); LYMPHOCYTES PERCENT AUTO 37 % (21-46); MONOCYTES ABSOLUTE AUTO 0.50 K/mm3 (0.16-1.47); MONOCYTES PERCENT AUTO 10 % (4-13); Mean Corpuscular HGB Conc 34.3 g/dL (31.5-36.5); Mean Corpuscular Volume 92 fL (80-100); NEUTROPHILS ABSOLUTE AUTO 2.31 K/mm3 (1.96-9.15); NEUTROPHILS PERCENT AUTO 46 % (41-73); NRBC ABSOLUTE 0.00 K/mm3 (0.00-0.02); NRBC Auto 0.0 /100 WBC (0.0-0.2); Platelet Count 315 K/mm3 (150-400); RDW Coefficient Variation 12.9 % (11.7-14.2); RDW Standard Deviation 43.8 fL (35.1-46.3)
[2025-04-18 11:39] LABS: Acetaminophen, Random <2.0 ug/mL (10.0-30.0); Alanine Aminotransfer (ALT/SGP 33 U/L (12-78); Albumin, Blood 3.8 g/dL (3.4-5.0); Albumin/Globulin Ratio 1.3 (0.8-1.8); Anion Gap 8 mmol/L (3-11); Aspartate Aminotrans (AST/SGOT 21 U/L (12-37); Bilirubin, Total 0.7 mg/dL (0.1-1.0); Blood Urea Nitrogen 16 mg/dL (8-24); CO2, Blood 28 mmol/L (21-32); Calcium, Blood 9.2 mg/dL (8.5-10.1); Chloride, Blood 104 mmol/L (98-108); Creatinine, Blood 0.70 mg/dL (0.40-1.00); Ethanol (Alcohol), Blood, Med <3 mg/dL; Globulin, Blood 3.0 g/dL (2.2-4.0); Glucose, Blood 102 mg/dL (70-99); Potassium, Blood 3.4 mmol/L (3.5-5.5); Salicylate <1.7 mg/dL (2.8-20.0); Sodium, Blood 137 mmol/L (136-145); Total Protein, Blood 6.8 g/dL (6.4-8.2)
== END 2025-04-18 13:52 | disposition home or self-care (01) ==
LOC: ER 09:52
PROVIDERS: Emergency Medicine
DX: F31.9 Bipolar disorder, unspecified (principal); K21.9 Gastro-esophageal reflux disease without esophagitis; E03.9 Hypothyroidism, unspecified; E11.9 Type 2 diabetes mellitus without complications; E78.5 Hyperlipidemia, unspecified; F17.210 Nicotine dependence, cigarettes, uncomplicated; Z88.8 Allergy status to other drugs, medicaments and biological substances; Z79.899 Other long term (current) drug therapy
CPT/HCPCS: 80053; 80320; 85025; 99285-25; G0480

== ENCOUNTER 2025-04-20 18:49 | Observation (INO) | payer MEDICARE, OTHER ==
[~2025-04-20] VITALS: Ht 175.3 cm; Wt 83.5 kg
[2025-04-20 20:19] LABS: Source, Urine Clean Catch
[2025-04-20 20:23] LABS: BASOPHILS ABSOLUTE AUTO 0.02 K/mm3 (0.00-0.23); BASOPHILS PERCENT AUTO 0 % (0-2); EOSINOPHILS ABSOLUTE AUTO 0.27 K/mm3 (0.00-0.68); EOSINOPHILS PERCENT AUTO 5 % (0-6); Hematocrit 36.6 % (33.0-51.0); Hemoglobin 12.5 g/dL (11.5-16.0); IMMATURE GRAN ABSOLUTE AUTO 0.01 K/mm3 (0.00-0.10); IMMATURE GRAN PERCENT AUTO 0 % (0-1); LYMPHOCYTES ABSOLUTE AUTO 2.60 K/mm3 (0.84-5.20); LYMPHOCYTES PERCENT AUTO 44 % (21-46); MONOCYTES ABSOLUTE AUTO 0.64 K/mm3 (0.16-1.47); MONOCYTES PERCENT AUTO 11 % (4-13); Mean Corpuscular HGB Conc 34.2 g/dL (31.5-36.5); Mean Corpuscular Volume 93 fL (80-100); NEUTROPHILS ABSOLUTE AUTO 2.31 K/mm3 (1.96-9.15); NEUTROPHILS PERCENT AUTO 40 % (41-73); NRBC ABSOLUTE 0.00 K/mm3 (0.00-0.02); NRBC Auto 0.0 /100 WBC (0.0-0.2); Platelet Count 303 K/mm3 (150-400); RDW Coefficient Variation 12.6 % (11.7-14.2); RDW Standard Deviation 42.8 fL (35.1-46.3)
[2025-04-20 20:24] LABS: Bilirubin, Urine Neg (Neg); Color, Urine Yellow (P-Yellow); Glucose Qualitative, Urine Neg (Neg); Ketones, Urine Neg (Neg); Leukocyte Esterase, Urine Neg (Neg); Protein, Urine 2+ (Neg); Specific Gravity, Urine 1.025 (1.003-1.022); Urobilinogen, Urine NORM (Normal)
[2025-04-20 20:39] LABS: White Blood Cells, Urine 0-2 /hpf (0-5)
[2025-04-20 21:01] LABS: Acetaminophen, Random <2.0 ug/mL (10.0-30.0); Ethanol (Alcohol), Blood, Med <3 mg/dL; Salicylate <1.7 mg/dL (2.8-20.0); Thyroid Stimulating Hormone 5.610 uIU/mL (0.360-4.800)
[2025-04-20 21:02] LABS: Alanine Aminotransfer (ALT/SGP 31 U/L (12-78); Albumin, Blood 3.4 g/dL (3.4-5.0); Albumin/Globulin Ratio 1.2 (0.8-1.8); Anion Gap 9 mmol/L (3-11); Aspartate Aminotrans (AST/SGOT 17 U/L (12-37); Bilirubin, Total 0.4 mg/dL (0.1-1.0); Blood Urea Nitrogen 11 mg/dL (8-24); CO2, Blood 26 mmol/L (21-32); Calcium, Blood 8.7 mg/dL (8.5-10.1); Chloride, Blood 106 mmol/L (98-108); Creatinine, Blood 0.75 mg/dL (0.40-1.00); Globulin, Blood 2.9 g/dL (2.2-4.0); Glucose, Blood 99 mg/dL (70-99); Potassium, Blood 3.0 mmol/L (3.5-5.5); Sodium, Blood 138 mmol/L (136-145); Total Protein, Blood 6.3 g/dL (6.4-8.2)
[2025-04-20 21:03] LABS: U Amphetamine Screen DETECTED; U Barbituate Screen Not Detected; U Benzodiazapine Screen DETECTED; U Buprenorphine Screen DETECTED; U Cannabinoids Screen Not Detected; U Cocaine Screen Not Detected; U Methadone Screen Not Detected; U Methamphetamine Screen DETECTED; U Opiates Screen Not Detected; U Oxycodone Screen Not Detected; U Phencyclidine Screen Not Detected
== END 2025-04-21 14:44 | disposition home or self-care (01) ==
LOC: ER 18:49 → EOR 19:12
PROVIDERS: ADMIT Emergency Medicine
DX: F25.0 Schizoaffective disorder, bipolar type (principal); R45.851 Suicidal ideations; E03.9 Hypothyroidism, unspecified; K21.9 Gastro-esophageal reflux disease without esophagitis; E11.9 Type 2 diabetes mellitus without complications; E78.5 Hyperlipidemia, unspecified; F17.200 Nicotine dependence, unspecified, uncomplicated; F15.10 Other stimulant abuse, uncomplicated; Z90.49 Acquired absence of other specified parts of digestive tract; Z79.899 Other long term (current) drug therapy
CPT/HCPCS: 80053; 80320; 81001; 81025; 84439; 84443; 85025; 93005; 93010; 99285-25; G0378; G0480